=== PATIENT | female | born 1980 | race Caucasian/White ===

== ENCOUNTER 2017-03-04 20:45 | Observation (INO) ==
--- NOTE | 2017-03-04 21:10 | Emergency Department Note ---
Disposition Clinical Impression: Palpitations, Supraventricular tachycardia Anemia Qualifiers: Anemia type: iron deficiency Iron deficiency anemia type: unspecified iron deficiency Qualified Code(s): D50.9 - Iron deficiency anemia, unspecified Disposition: Admitted As Inpatient Condition: Good Referrals: Unassigned,Provider [Primary Care Provider] - Forms: ED Satisfaction Letter Time of Disposition: 22:11 General Adult HPI - General Chief complaint: ED Arrhythmia/Palpitations Stated complaint: "Fast Heart Rate" Time Seen by Provider: 03/04/17 20:56 Source: patient Mode of arrival: ambulatory Limitations: no limitations Nursing Notes Reviewed: Yes Vital Signs Reviewed: Yes - History of Present Illness HPI Narrative: Patient presents emergency room for evaluation of palpitations. She had an event monitor go off and she was called by the well reactivator operator recommendation from the emergency room for evaluation. Denies any other symptoms or complaints at that time. Only here at the request of the well reactivator operator. 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 Constitutional: Denies: fever, chills Cardiovascular: Reports: palpitations. Denies: chest pain, dyspnea on exertion , orthopnea, edema Respiratory: Denies: cough, dyspnea, wheezes Gastrointestinal: Denies: abdominal pain, nausea, vomiting, diarrhea Genitourinary: Denies: dysuria, frequency Musculoskeletal: Denies: back pain, neck pain Neurological: Denies: headache Past Medical History - Past Medical History Attestation: Yes The following information was validated with the patient. Source: patient Medical history: Reports: SVT Surgical history: Reports: non-contributory Psychiatric history: Reports: anxiety - Social History Smoking Status: Current every day smoker Smokeless Tobacco Status: No Alcohol use: Reports: rarely Drug use: Reports: none Physical Exam - General Limitations: no limitations General appearance: alert, in no apparent distress - Neck Neck exam: Present: normal inspection, full ROM, trachea midline - Respiratory Respiratory exam: Present: normal lung sounds bilaterally. Absent: respiratory distress, wheezes, stridor, accessory muscle use - Cardiovascular Cardiovascular exam: Present: regular rate, normal rhythm, tachycardia, normal heart sounds - Abdominal Exam Abdominal exam: Present: soft, Non-Tender, normal bowel sounds. Absent: tenderness, distention, guarding, rebound, rigidity, Mcgraw's sign, Rovsing's sign, tenderness at McBurney's Point, hernia - Extremities Exam Extremities exam: Present: normal inspection, full ROM. Absent: normal capillary refill (Diminished capillary refill) - Back Exam Back exam: Present: normal inspection - Neurological Exam Neurological exam: Present: alert, oriented X3, CN II-XII intact, normal gait - Skin Skin exam: Present: warm, dry, intact, normal color Course Course Narrative: Patient seen and examined the time of arrival. See history of present illness. 36-year-old female sent in from her well reactivator operator today for an event monitor activation. She is in several runs of SVT. Patient was at her child's track meet at that time decided to come in after the event was completed. Patient denies any current symptoms on presentation. Heart rate is borderline tachycardic at 100-103. She denies any chest pain shortness of breath headache vision changes nausea vomiting or diarrhea. Denies fevers or chills. No recent medical issues. Denies any abdominal symptoms trauma or injury. She is alert and oriented 3 Stoll in no acute distress. Physical exam is otherwise benign. Lungs are clear heart is regular patient is very thin and does appear to be slightly cachectic based on presentation. Abdomen is soft nontender nondistended no guarding or rigidity lungs are clear heart is regular. Patient denies any vaginal discharge bowel or bladder incontinence or changes. No dark- colored stool. Patient is ambulatory without any signs of ataxia or weakness. She cannulated through the emergency room without any difficulty. Patient at this time will have laboratory evaluation completed in including thyroid troponin basic CBC and chemistry to address any other underlying potential etiology. Patient is never had a laboratory workup for this SVT syndromes. EKG shows sinus rhythm with no acute pathology changes at this time. Patient will be admitted to the hospital for further evaluation once the imaging and laboratory workup are completed. Patient is stable resting comfortably in the bed no distress at this time - Reevaluation(s) Reevaluation #1: Patient found to have significantly decreased hemoglobin at 6.6. One back in to discuss this with the patient. Patient says that she has had chronic microcytic anemia that was diagnosed 12 years ago. She stopped taking iron because it made her stomach upset. Patient I reviewed in great detail that she has not had any dark stool no vomiting or hematemesis no hematochezia or melena. Patient said that she would like to defer the rectal examination and try to have a bowel movement on her own and that will be sent for occult testing. Patient denies any other specific medical history at this time. Patient is stable with normal blood pressure and vital signs at this time. Heart rate appears to be secondary to what is anemia this point. Type and screen ordered this time and 1 unit of blood to be transfused as needed for symptom control. Patient will be discussed with the hospitalist for admission and evaluation by hematology and cardiology. Patient is stable resting comfortably in the bed no distress patient and the family were both informed and they are comfortable this plan. We will continue to monitor here in the emergency room as admission process is completed Time: 22:09 Reevaluation #2: Patient discussed with the hospitalist dr. keenan. We reviewed the patient' s course of care presentation medical intervention and outpatient evaluation by the well reactivator operator. He had no other recommendations at this time. Patient set up for transfusion 1 unit of blood at this point. Patient will be admitted for definitive management. Consultations placed for the value analysis coordinator as well as well reactivator operator. Patient is stable and good medical condition. Discussed the findings with the patient and her are both comfortable being admitted at this time. Patient will be observed in the emergency room his admission process is completed for anemia that appears to be microcytic causing cardiac arrhythmia. Time: 22:43 Vital Signs Temperature 97.5 F L 03/04/17 20:51 Pulse Rate 101 03/04/17 20:51 Respiratory Rate 18 03/04/17 20:51 Blood Pressure 113/77 03/04/17 20:51 O2 Sat by Pulse Oximetry 100 03/04/17 20:51 Temperature 97.5 F L 03/04/17 20:51 Pulse Rate 101 03/04/17 20:51 Respiratory Rate 18 03/04/17 20:51 Blood Pressure 113/77 03/04/17 20:51 O2 Sat by Pulse Oximetry 100 03/04/17 20:51 Oxygen Delivery Oxygen Delivery Room Air Medical Decision Making - MDM Narrative Medical decision making narrative: Anemia, SVT - Medical Records Medical records reviewed: Yes I reviewed the patient's medical records. - Lab Data Lab results reviewed: Yes I reviewed the patient's lab results. - Radiology Data Radiology results reviewed: Yes I reviewed the patient's radiology results. Chest x-ray stable no acute signs of pathology. - EKG Data EKG #1 EKG attestation: Yes I reviewed and interpreted this EKG. EKG shows normal: sinus rhythm, axis, intervals, QRS complexes, ST-T waves Rate: normal Rhythm: NSR [place]/QRS: normal When compared to previous EKG there are: no significant changes Interpretation: no acute changes, unchanged when compared to prior tracing (date ) (12/14/16) Critical Care Time Critical Care Time: Yes Total Critical Care Time: 35 Attestation: Independent of procedures and medical intervention in the emergency room
[2017-03-04 21:20] LABS: Basophils % 0.2 %; Eosinophils # 0.2 K/mcL (0.0-0.6); Eosinophils % 1.8 %; Hematocrit 24.3 % (35.3-44.9); Immature Granulocytes % 0.4 % (0-4); Immature Platelets 3.4 % (1.1-6.1); Lymphocytes # 2.7 K/mcL (0.6-4.6); Lymphocytes % 32.6 %; Mean Corpuscular HGB Conc 27.2 g/dL (31.6-35.5); Mean Corpuscular Hemoglobin 17.3 pg (28.0-33.3); Mean Corpuscular Volume 63.6 fL (83.0-100.0); Mean Platelet Volume 9.2 fL (9.4-12.4); Monocytes # 0.5 K/mcL (0.0-1.3); Monocytes % 5.6 %; Neutrophils # 4.9 K/mcL (1.6-8.9); Platelet Count 485 K/mcL (140-400); Red Blood Count 3.82 M/mcL (3.82-4.97); Red Cell Distribution Width 20.6 % (11.5-14.5); Segmented Neutrophils % 59.4 %
[2017-03-04 21:29] LABS: BUN/Creatinine Ratio 22 (6-26); Blood Urea Nitrogen 19 mg/dL (7-20); Carbon Dioxide 23 mEq/L (19-29); Chloride 108 mEq/L (98-109); Glucose 92 mg/dL (70-99); Osmolality,Calculated 292 (280-300); Potassium 3.8 mEq/L (3.5-4.5); Sodium 140 mEq/L (136-145); eGFR For African Americans > 60 (> 60); eGFR For Non-African Americans > 60 (> 60)
[2017-03-04 21:31] LABS: Hemoglobin 6.6 g/dL (11.5-15.4)
[2017-03-04 21:33] LABS: Microcytosis Present (Not Present); Target Cells 1+ (Not Present); Tear Drop Cells 1+ (Not Present)
[2017-03-04 21:34] LABS: Anisocytosis 2+ (Not Present); Poikilocytosis 1+ (Not Present)
[2017-03-04 21:51] LABS: Thyroid Stimulating Hormone 2.683 mcIU/mL (0.350-4.840)
--- NOTE | 2017-03-04 22:10 | Emergency Department Note ---
Disposition Clinical Impression: Palpitations, Supraventricular tachycardia, Anemia Disposition: Admitted As Inpatient Condition: Good General Adult HPI - General Chief complaint: ED Arrhythmia/Palpitations Stated complaint: "Fast Heart Rate" Time Seen by Provider: 03/04/17 20:56 Source: patient Mode of arrival: ambulatory Limitations: no limitations Nursing Notes Reviewed: Yes Vital Signs Reviewed: Yes - History of Present Illness Location: chest Pain Scale: 6 Improves with: rest Worsens with: nothing Associated symptoms: Reports: denies other symptoms Treatments Prior to Arrival: none - Related Data Home Medications Medication Instructions Recorded Confirmed Ascorbate Calcium [Vitamin C] 500 mg PO DAILY 03/04/17 03/04/17 Ibuprofen [Advil] 200 mg PO Q6H PRN 03/04/17 03/04/17 Allergies Allergy/AdvReac Type Severity Reaction Status Date / Time No Known Allergies Allergy Verified 03/04/17 21:38 Constitutional: Denies: fever, chills Cardiovascular: Reports: palpitations. Denies: chest pain, dyspnea on exertion , orthopnea, edema Respiratory: Denies: cough, dyspnea, wheezes Gastrointestinal: Denies: abdominal pain, nausea, vomiting, diarrhea Genitourinary: Denies: dysuria, frequency Musculoskeletal: Denies: back pain, neck pain Neurological: Denies: headache Past Medical History - Past Medical History Medical history: Reports: SVT Surgical history: Reports: non-contributory Psychiatric history: Reports: anxiety - Social History Smoking Status: Current every day smoker Smokeless Tobacco Status: No Alcohol use: Reports: rarely Drug use: Reports: none Physical Exam - General Limitations: no limitations General appearance: alert, in no apparent distress Course Vital Signs Temperature 97.5 F L 03/04/17 20:51 Pulse Rate 101 03/04/17 20:51 Respiratory Rate 18 03/04/17 20:51 Blood Pressure 113/77 03/04/17 20:51 O2 Sat by Pulse Oximetry 100 03/04/17 20:51 Temperature 97.5 F L 03/04/17 20:51 Pulse Rate 101 03/04/17 20:51 Respiratory Rate 18 03/04/17 20:51 Blood Pressure 113/77 03/04/17 20:51 O2 Sat by Pulse Oximetry 100 03/04/17 20:51 Oxygen Delivery Oxygen Delivery Room Air Medical Decision Making - Medical Records Medical records reviewed: Yes I reviewed the patient's medical records. - Lab Data Lab results reviewed: Yes I reviewed the patient's lab results. Result diagrams: 03/04/17 21:09 03/04/17 21:09 Lab Results 03/04/17 03/04/17 03/04/17 Range/Units 21:09 21:09 21:09 WBC 8.2 (4.3-11.1) K/mcL RBC 3.82 (3.82-4.97) M/mcL Hgb 6.6 L (11.5-15.4) g/dL Hct 24.3 L (35.3-44.9) % MCV 63.6 L (83.0-100.0) fL MCH 17.3 L (28.0-33.3) pg MCHC 27.2 L (31.6-35.5) g/dL RDW 20.6 H (11.5-14.5) % Plt Count 485 H (140-400) K/mcL MPV 9.2 L (9.4-12.4) fL Immature Gran % 0.4 (0-4) % Seg Neutrophils % 59.4 % Lymphocytes % 32.6 % Monocytes % 5.6 % Eosinophils % 1.8 % Basophils % 0.2 % Neutrophils # 4.9 (1.6-8.9) K/mcL Lymphocytes # 2.7 (0.6-4.6) K/mcL Monocytes # 0.5 (0.0-1.3) K/mcL Eosinophils # 0.2 (0.0-0.6) K/mcL Basophils # 0.0 (0.0-0.2) K/mcL Platelet Estimate Slight increase H (Normal) Immature Plt Fraction 3.4 (1.1-6.1) % Poikilocytosis 1+ A (Not Present) Anisocytosis 2+ A (Not Present) Microcytosis Present A (Not Present) Target Cells 1+ A (Not Present) Tear Drop Cells 1+ A (Not Present) Sodium 140 (136-145) mEq/L Potassium 3.8 (3.5-4.5) mEq/L Chloride 108 (98-109) mEq/L Carbon Dioxide 23 (19-29) mEq/L BUN 19 (7-20) mg/dL Creatinine 0.87 (0.57-1.11) mg/dL Est GFR ( Amer) > 60 (> 60) Est GFR (Non-Af Amer) > 60 (> 60) BUN/Creatinine Ratio 22 (6-26) Glucose 92 (70-99) mg/dL Calculated Osmolality 292 (280-300) Calcium 9.0 (8.6-10.8) mg/dL Magnesium 2.0 (1.6-2.6) mg/dL Troponin I 0.01 (0-0.03) ng/mL TSH 2.683 (0.350-4.840) mcIU/mL Urine Opiates Screen (Tmwiqz=907) ng/mL Ur Barbiturates Screen (Jbnvvh=717) ng/mL Ur Phencyclidine Scrn (Cutoff=25) ng/mL Ur Amphetamines Screen (Ecjatm=2398) ng/mL U Benzodiazepines Scrn (Wzwyqb=125) ng/mL Urine Cocaine Screen (Cutoff= 300) ng/mL U Marijuana (THC) Screen (Cutoff = 50) ng/mL 03/04/17 Range/Units 22:15 WBC (4.3-11.1) K/mcL RBC (3.82-4.97) M/mcL Hgb (11.5-15.4) g/dL Hct (35.3-44.9) % MCV (83.0-100.0) fL MCH (28.0-33.3) pg MCHC (31.6-35.5) g/dL RDW (11.5-14.5) % Plt Count (140-400) K/mcL MPV (9.4-12.4) fL Immature Gran % (0-4) % Seg Neutrophils % % Lymphocytes % % Monocytes % % Eosinophils % % Basophils % % Neutrophils # (1.6-8.9) K/mcL Lymphocytes # (0.6-4.6) K/mcL Monocytes # (0.0-1.3) K/mcL Eosinophils # (0.0-0.6) K/mcL Basophils # (0.0-0.2) K/mcL Platelet Estimate (Normal) Immature Plt Fraction (1.1-6.1) % Poikilocytosis (Not Present) Anisocytosis (Not Present) Microcytosis (Not Present) Target Cells (Not Present) Tear Drop Cells (Not Present) Sodium (136-145) mEq/L Potassium (3.5-4.5) mEq/L Chloride (98-109) mEq/L Carbon Dioxide (19-29) mEq/L BUN (7-20) mg/dL Creatinine (0.57-1.11) mg/dL Est GFR ( Amer) (> 60) Est GFR (Non-Af Amer) (> 60) BUN/Creatinine Ratio (6-26) Glucose (70-99) mg/dL Calculated Osmolality (280-300) Calcium (8.6-10.8) mg/dL Magnesium (1.6-2.6) mg/dL Troponin I (0-0.03) ng/mL TSH (0.350-4.840) mcIU/mL Urine Opiates Screen Negative (Yhfegq=313) ng/mL Ur Barbiturates Screen Negative (Qmwqby=853) ng/mL Ur Phencyclidine Scrn Negative (Cutoff=25) ng/mL Ur Amphetamines Screen Negative (Caldqc=7919) ng/mL U Benzodiazepines Scrn Negative (Bdxuqc=098) ng/mL Urine Cocaine Screen Negative (Cutoff= 300) ng/mL U Marijuana (THC) Screen Negative (Cutoff = 50) ng/mL Attestation Statement - Attestation Attestation: I personally interviewed and examined this patient and my medical decision- making was reviewed with the ED Resident Physician, Dr. Bales. I agree with the documented findings, disposition and treatment plan as described except to the extent set forth below. Patient is a 36-year-old white female with a remote history of iron deficiency anemia who presents to the emergency department with reports of "SVT". Patient had an episode earlier this evening of rapid heart rate where she felt her heart rate went up into the 200s. Patient became lightheaded but did not have a syncopal episode, denies any associated chest pain or pressure, no shortness of breath, no diaphoresis, no nausea. Patient arrives with a mild tachycardia with heart rate 103 and regular. Remainder of vitals are stable. Patient is in no acute distress and had no signs of respiratory distress. Patient's physical exam unremarkable agree with physical exam documentation. Patient's CBC shows a microcytic anemia with hemoglobin of 6.6. Patient states that she had taken iron in the past 10-12 years ago but stopped taking it due to "it made me feel sick". Patient denies any bright red blood per rectum or tarry black stools. No history of prior GI bleeding. Patient currently refusing rectal exam and will notify nursing if she needs to have a bowel movement to send for stool guaiac. We will obtain a type and screen and transfuse patient 2 units packed red blood cells and admit for further hematology consult.
[2017-03-04 22:28] LABS: Amphetamine Screen,Urine Negative ng/mL (Cutoff=1000); Barbiturate Screen,Urine Negative ng/mL (Cutoff=200); Benzodiazepines Screen,Urine Negative ng/mL (Cutoff=200); Cannabinoid Screen,Urine Negative ng/mL (Cutoff = 50); Cocaine Screen,Urine Negative ng/mL (Cutoff= 300); Opiate Screen,Urine Negative ng/mL (Cutoff=300); Phencyclidine Screen,Urine Negative ng/mL (Cutoff=25)
[2017-03-04] MEDS ORDERED: Acetaminophen 325 MG TABLET PO PRN (23:17)
[2017-03-04] MEDS ORDERED: Naloxone 0.4 MG/ML INJ IVP PRN (23:17)
--- NOTE | 2017-03-05 00:18 | Internal Med History&Physical ---
Date of Encounter: 03/04/17 Time of Encounter: 23:30 Assessment and Plan (1) Supraventricular tachycardia Current visit: Yes Status: Acute -Diagnosed on Halter monitor. No longer symptomatic. HR NSR at 80. RRR, no murmurs. Denies CP, SOB. -Cardiology, Dr. Rincon recommended patient be admitted for further evaluation. -Normal sinus rhythm on exam. EKC normal. Normal ECHO on 02/14 showing EF 65%. Trop .01. CXR normal Plan -Await TSH results -Cardio consult. Will follow recommendations. Thank you. (2) Anemia Current visit: Yes Status: Acute -Previous history of iron deficiency anemia. Doesnt take iron due to hurting stomach -Abnormal CBC -No identifiable bleeding-denies hematochezia, dark tarry stools, melena, hematuria, coughing up blood. Plan -Trend H and H -Occult blood ordered -Hemeonc consulted Qualifiers: Anemia type: iron deficiency Iron deficiency anemia type: unspecified iron deficiency Qualified Code(s): D50.9 - Iron deficiency anemia, unspecified (3) DVT prophylaxis Current visit: Yes Status: Acute -because of anemia, pneumatic compression stockings. Internal Medicine - H&P: HPI Chief complaint: Palpatations Admitted From: Emergency Dept Plans for Post Hospital Care: Home History of present illness: Ms. Sauceda is a pleasant 36 year old female, PMH anemia "due to iron deficiency ", admitted per cardiology for SVT seen on Holter monitor. One month ago patient was having palpitations, admitted and workup was negative. Patient placed on Holter monitor for further evaluation. While at a track meet patient noticed heart racing, Holter monitor "went out", Dr. Pardo (sp?) was notified and called the patient to go to the ED to be admitted. Palpitations constant and lasted 3-4hours. Patient continue to watch track meet and then went to ED. While in the ED, patient converted back to sinus rhythm. Now, on the floor, only complaint is generalized fatigue, which she normally has, but is a little worse now. Otherwise, she is back to baseline. Concerning her anemia, patient states she was prescribed iron pills. However, quit taking them because it caused her upset stomach. She tried different doses , delivery methods, etc and none of them seem to relieve her upset stomach. Denies any hemoptysis, hematochezia, melena, dark tarry stools, hematuria. No previous history of cancer. Her only medication is vitamin C, which she takes because she feels it helps keep her from getting sick Continue to smoke 1-2 packs per day since age 11. No family history of cancer. 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 , son and daughter present throughout examination. Past Med Surg Social Fam HX - Past Medical History Medical history: SVT, other Psychiatric history: anxiety - Past Surgical History Surgical History: non-contributory - Social History Smoking Status: Current every day smoker Smokeless Tobacco Status: No Alcohol use: rarely Drug use: none - Family History Mother Name: Nakia Pickard Age: 57 Living Status: Still Living Hx Family Cardiac Disorders: No Hx Family Respiratory Disorders: No Hx Family Cancer: No Hx Family GI Disorders: No Hx Family Genitourinary Disorders: No Hx Family Endocrine Disorder: Yes (Hyperthyroidism) Hx Family Musculoskeletal Disorders: No Hx Family Neuromuscular Disorders: No Hx Family Neurologic Disorders: No Hx Family HEENT Disorders: No Hx Family Autoimmune Disorders: No Hx Family Reproductive Disorders: No Hx Family Psychosocial Disorders: No Hx Family Medical Disorders: No Internal Medicine - H&P: Meds Ascorbate Calcium [Vitamin C] 500 mg PO DAILY 03/04/17 [History] Ibuprofen [Advil] 200 mg PO Q6H PRN 03/04/17 [History] Allergies No Known Allergies Allergy (Verified 03/04/17 21:38) All Systems PM: A 10-system review of systems was performed and is negative for pertinent findings except as documented above in the HPI. - Constitutional Constitutional: as per HPI - EENT Eyes: as per HPI - Cardiovascular Cardiovascular ROS IM: as per HPI - Respiratory Respiratory: as per HPI - Gastrointestinal Gastrointestinal: as per HPI - Genitourinary Genitourinary: as per HPI - Neurological Neurological ROS: as per HPI - Constitutional Vitals: Temp Pulse Resp BP Pulse Ox 98.5 F 80 16 109/75 100 03/04/17 23:18 03/04/17 23:18 03/04/17 23:18 03/04/17 23:18 03/04/17 23:38 General appearance: Present: A&O X 3, no acute distress, answers questions appropriately - Head Head exam: Present: atraumatic, normocephalic - Eye Eye exam: Present: PERRL, conjuntiva pink, sclera anicteric Pupils: Present: PERRL - Neck Neck exam general surgery: Present: supple, trachea midline. Absent: lymphadenopathy - Respiratory Respiratory exam: Present: CTAB. Absent: accessory muscle use, rales, rhonchi, wheezes - Cardiovascular Cardiovascular exam: Present: RRR, +S1, +S2. Absent: diastolic murmur, gallop, rubs, systolic murmur - GI/Abdominal GI/Abdominal exam: Present: soft, no peritoneal signs. Absent: distended, tenderness - Extremities Exam Extremities exam: Present: warm, radial pulses palpable and symetrical. Absent : calf tenderness, cyanotic, pedal edema - Neurological Exam Neurological exam: Present: CN II-XII intact, oriented X3, no focal deficits. Absent: facial droop, speech deficit - Psychiatric Psychiatric exam: Present: normal affect, normal mood - Skin Skin exam: Present: normal color Internal Med - H&P Results - Labs CBC & Chem 7: 03/04/17 21:09 03/04/17 21:09
[2017-03-05 01:35] LABS: % Iron Saturation 2 % (15-50); Iron 9 mcg/dL (50-170); Transferrin 338 mg/dL (180-382)
[2017-03-05 01:54] LABS: Ferritin 2 ng/ml (5-204)
[2017-03-05] MEDS ORDERED: 0.9 % Sodium Chloride 250 ML ONE (02:20)
[2017-03-05 06:18] LABS: Hematocrit 26.4 % (35.3-44.9); Hemoglobin 7.4 g/dL (11.5-15.4)
[2017-03-05 06:35] LABS: BUN/Creatinine Ratio 18 (6-26); Blood Urea Nitrogen 14 mg/dL (7-20); Calcium 8.6 mg/dL (8.6-10.8); Carbon Dioxide 23 mEq/L (19-29); Chloride 108 mEq/L (98-109); Glucose 86 mg/dL (70-99); Osmolality,Calculated 286 (280-300); Phosphorous 4.3 mg/dL (2.3-4.7); Potassium 3.7 mEq/L (3.5-4.5); Sodium 138 mEq/L (136-145); eGFR For African Americans > 60 (> 60); eGFR For Non-African Americans > 60 (> 60)
[2017-03-05 07:48] LABS: Alanine Aminotransferase < 6 Units/L (0-55); Albumin 3.3 g/dL (3.5-5.0); Albumin/Globulin Ratio 1.2 (1.1-2.2); Alkaline Phosphatase 68 Units/L (38-126); Aspartate Amino Transferase 10 Units/L (5-34); Bilirubin,Direct 0.1 mg/dL (0.0-0.5); Bilirubin,Total 0.1 mg/dL (0.2-1.2); Globulin 2.8 g/dL (2.4-3.5); Lactate Dehydrogenase 161 Units/L (159-327); Total Protein 6.1 g/dL (6.0-8.3)
[2017-03-05 08:21] LABS: Immature Reticulocyte % 16.7 % (11.0-38.0); Retculocyte # 0.02 M/mcL (0.05-0.10); Reticulocyte % 0.4 % (1.6-2.8)
--- NOTE | 2017-03-05 09:18 | Internal Med Progress Note ---
Addendum entered and electronically signed by Baljeet Walker DO 03/05/17 11:20: No evidence of GI bleed, patient affirms no bloody bm Original Note: <Baljeet Walker - Last Filed: 03/05/17 11:09> Date of Encounter: 03/05/17 Time of Encounter: 08:20 - Assessment and plan (1) Anemia Current Visit: Yes Status: Acute Assessment and plan: Microcytic, hypochromic, to suggest chronicity. Iron panel suggests RHONDA, also congruent with her reported heavy menstrual periods. Patient reports that she was on PO iron tablets through her 20's, then with nausea and epigastric burning stopped taking them. Consideration for superimposed anemia of inflammation (chronic disease) Transfused 1 U PRBC, for Hgb 6.6 to 7.4 Cont to monitor. She is a 1-2ppd smoker since early teens, with prior CTA in December of 2010 for chest pain disclosing: There is adequate opacification of the pulmonary arteries for evaluation. No evidence of intraluminal filling defect to suggest pulmonary embolism. Main pulmonary artery is normal in caliber. No acute process in the lungs. No effusion or pneumothorax. The central airways are clear. Residual thymic tissue is noted in the anterior mediastinum. There is fullness of the AP window with AP window lymph nodes measuring up to 12 mm in short axis dimension. This is suggest lymphadenopathy. No definite right mediastinal or hilar lymphadenopathy. No axillary lymphadenopathy. No evidence of pericardial effusion. Heart size is within normal limits. Limited images of the upper abdomen demonstrate no acute abnormality. No acute abnormality of the visualized osseous structures. IMPRESSION: No evidence of pulmonary embolism or acute pulmonary abnormality. Nonspecific AP window lymphadenopathy. This may be reactive although neoplastic disease cannot be excluded. Recommend close interval follow-up with CT. PET CT could also be considered. Patient did not have follow-up. Review of CXR on this visit discloses hilar LAD prominence. Ordered for CHET in AM, possible sarcoidosis Qualifiers: Anemia type: iron deficiency Iron deficiency anemia type: unspecified iron deficiency Qualified Code(s): D50.9 - Iron deficiency anemia, unspecified (2) Supraventricular tachycardia Current Visit: Yes Status: Acute Assessment and plan: As reported in documentation, captured on Holter Her EKGs obtained in ED disclose NSR without ST or other ischemic changes. Does not appear to have pre-excitatory accessory bundle. Suspect 2* anemia per above. Trope x 2 negative. Appreciate cardiology recs. (3) Current smoker Current Visit: Yes Status: Acute Assessment and plan: Patient smokes 1-2ppd since early teens. We discussed smoking cessation, she declines NRT at this time. (4) DVT prophylaxis Current Visit: Yes Status: Acute Assessment and plan: EPCDs - Subjective Interval history: Patient seen/eval, interval events reviewed with night resident. Patient feels fatigued and is reluctant to go over her medical history in detail. With prompting, she does endorse events that prompted hospitalization, including Holter monitor at track meet with HR 200's, and advised by her Dough Catcher Dr. Pardo to seek medical attention. She endorses heavy menstrual periods and RHONDA diagnosed in her teens, and was on oral iron supplements but stopped taking them over 15 years ago due to nausea and epigastric burning sensation. PCP is Dr. Ott. Patient would start smoking in her early teens, 1-2ppd, occ etoh, denies substance abuse. She has noticed a dry nonproductive cough over the past few months, no hemoptysis. Occasional sweats at night, though unsure if it is due to poor ventilation. Denies fever or unintentional weight loss. No NVD. Denies bloody bowel movements or abdominal pain. - Constitutional Vitals: Temp Pulse Resp BP Pulse Ox 97.6 F 85 15 100/66 95 03/05/17 06:19 03/05/17 06:19 03/05/17 06:19 03/05/17 06:19 03/05/17 06:19 General appearance: Present: A&O X 3, no acute distress, answers questions appropriately - Head Head exam: Present: atraumatic, normocephalic - Eye Eye exam: Present: EOMI, sclera anicteric - ENT ENT exam: Present: mucous membranes moist, normal oropharynx (no lesions or bleed) - Neck Neck exam general surgery: Present: supple, trachea midline. Absent: lymphadenopathy - Respiratory Respiratory exam: Present: CTAB. Absent: rhonchi, wheezes - Cardiovascular Cardiovascular exam: Present: +S1, +S2. Absent: JVD - GI/Abdominal GI/Abdominal exam: Present: soft, no peritoneal signs. Absent: tenderness - Rectal Rectal exam: Present: deferred (patient declines) - Extremities Exam Extremities exam: Present: warm, radial pulses palpable and symetrical. Absent : pedal edema Additional comments: no rashes, joint pain. No erythema nodosum - Neurological Exam Neurological exam: Absent: facial droop, speech deficit Internal Medicine: Result - Labs CBC & Chem 7: 03/05/17 05:44 03/05/17 05:44 Labs: Short CBC 03/05/17 Range/Units 05:44 Hgb 7.4 L (11.5-15.4) g/dL Hct 26.4 L (35.3-44.9) % [facility] 03/05/17 05:44 Sodium 138 Potassium 3.7 Chloride 108 Carbon Dioxide 23 BUN 14 Creatinine 0.76 Glucose 86 Calcium 8.6 Cardiac Enzymes 03/05/17 Range/Units 08:12 Troponin I 0.01 (0-0.03) ng/mL Liver Function 03/05/17 Range/Units 05:44 Total Bilirubin 0.1 L (0.2-1.2) mg/dL Direct Bilirubin 0.1 (0.0-0.5) mg/dL AST 10 (5-34) Units/L ALT < 6 (0-55) Units/L Alkaline Phosphatase 68 (38-126) Units/L Albumin 3.3 L (3.5-5.0) g/dL Consult Discharge Plan - Plan Referrals: Nick Ott MD [Primary Care Provider] - <Bhupendra Arrieta P - Last Filed: 03/05/17 13:37> Date of Encounter: 03/05/17 - Constitutional Vitals: Temp Pulse Resp BP Pulse Ox 97.6 F 90 15 93/61 98 03/05/17 12:00 03/05/17 12:00 03/05/17 12:00 03/05/17 12:00 03/05/17 12:00 Internal Medicine: Result - Labs CBC & Chem 7: 03/05/17 05:44 03/05/17 05:44 Labs: Short CBC 03/05/17 Range/Units 05:44 Hgb 7.4 L (11.5-15.4) g/dL Hct 26.4 L (35.3-44.9) % [facility] 03/05/17 05:44 Sodium 138 Potassium 3.7 Chloride 108 Carbon Dioxide 23 BUN 14 Creatinine 0.76 Glucose 86 Calcium 8.6 Cardiac Enzymes 03/05/17 Range/Units 08:12 Troponin I 0.01 (0-0.03) ng/mL Liver Function 03/05/17 Range/Units 05:44 Total Bilirubin 0.1 L (0.2-1.2) mg/dL Direct Bilirubin 0.1 (0.0-0.5) mg/dL AST 10 (5-34) Units/L ALT < 6 (0-55) Units/L Alkaline Phosphatase 68 (38-126) Units/L Albumin 3.3 L (3.5-5.0) g/dL - Attending Attestation I examined this patient and my medical decision-making was reviewed with the RETIREMENT CONSULTANT/PA/Advanced Practice Nurse/Resident Physician. I agree with the documented findings, disposition and treatment plan as described except to the extent set forth below. Cardiology recommendations appreciated Hemoglobin is 7.4. We will transfuse 2 more packed red blood cell. We will recheck labs tomorrow. Outpatient follow-up with LUNCHROOM AIDE (menorrhagia)/pulmonary( hilar lymphadenopathy) This is a event note and not billable note.
--- NOTE | 2017-03-05 12:59 | Cardiology History & Physical ---
Date of Encounter: 03/05/17 Time of Encounter: 11:00 Assessment and Plan (1) Supraventricular tachycardia Current Visit: Yes Status: Acute Patient reports a history of palpitations over the past 10 years which have become more frequent in the past year. She was recently seen in the Cardiology office in December after being diagnosed in the ER with SVT. Again demonstrated on her event monitor yesterday is a regular narrow complex tachycardia, consistent with SVT. The precipitant is most likely profound anemia. She has received blood transfusion and is feeling better. She has not had recurrent palpitations or SVT while here. I recommend workup for her iron deficiency anemia and treatment. Dysrhythmia is secondary to this primary insult. Can consider low dose beta deny (Toprol XL 12.5mg or 25mg daily) during her hospitalization or at discharge if blood pressure allows. Otherwise, her echo demonstrates no concerning findings. No further cardiac workup is warranted at this time. We will sign off. Please call with questions. Recommend outpatient cardiology follow up for re-evaluation of dysrhythmia. History of Present Illness Chief complaint: Palpitations HPI: Ms. Sauceda is a 36 year old female known to me from the outpatient setting who I sent to the ER for SVT. I saw her for an initial consultation on January 19, 2017 for an ER follow up for which she was given a diagnosis of SVT. Unfortunately, there was no documentation of the rhythm disturbance and I recommended performing a 4 week event monitor and echo. Yesterday evening I was paged by the Cardio Monitor [employer] to inform me of a auto-triggered dysrhythmia. I called the patient and left a voicemail message. The company called again and said she had persistent SVT, HR 160-180's. I tried calling her without success. Eventually, I was able to get in touch with the patient. She was watching a track meet and did not hear her phone. She told me she wasn't feeling well and that she had palpitations. I instructed her to go to ER. Incidentally, she was discovered to have profound anemia, Hgb 6.6 and low iron count. She denies any bleeding events to me and reports that her menstrual cycles are "normal" for her. While in ER, appears to have sinus tachycardia. Presently, at bedside she is in NSR and denies recurrent palpitations since admission. She has received blood transfusion. Past Med Surg Social Fam HX - Past Medical History Attestation: Yes The following information was validated with the patient. Medical history: SVT, other Psychiatric history: anxiety - Past Surgical History Surgical History: non-contributory - Social History Smoking Status: Current every day smoker Smokeless Tobacco Status: No Alcohol use: rarely Drug use: none - Family History Mother Name: Nakia Pickard Age: 57 Living Status: Still Living Hx Family Cardiac Disorders: No Hx Family Respiratory Disorders: No Hx Family Cancer: No Hx Family GI Disorders: No Hx Family Genitourinary Disorders: No Hx Family Endocrine Disorder: Yes (Hyperthyroidism) Hx Family Musculoskeletal Disorders: No Hx Family Neuromuscular Disorders: No Hx Family Neurologic Disorders: No Hx Family HEENT Disorders: No Hx Family Autoimmune Disorders: No Hx Family Reproductive Disorders: No Hx Family Psychosocial Disorders: No Hx Family Medical Disorders: No Medications and Allergies Ascorbate Calcium [Vitamin C] 500 mg PO DAILY 03/04/17 [History] Ibuprofen [Advil] 200 mg PO Q6H PRN 03/04/17 [History] Allergies No Known Allergies Allergy (Verified 03/04/17 21:38) All Systems Review: A 10-system review of systems was performed and is negative for pertinent findings except as documented above in the HPI. - Cardiovascular Cardiovascular: as per HPI, palpitations Physical Examination Vital Signs, Last 4 Hours Temp Pulse Resp BP Pulse Ox 03/05/17 12:00 97.6 F 90 15 93/61 98 03/05/17 09:07 95 General: Conversant, No Apparent Distress HEENT: Atraumatic, Mucus Membranes Moist Neck: No JVD, Normal carotid pulses Cardiac: Reg Rate and Rhythm, Normal S1 and S2, No Murmur Lungs: Normal Breath Sounds, No Wheeze, Rales, Rhonchi Neuro: Alert and responsive, No focal deficits noted Abdomen: Soft, Non-Tender, Other (bowel sounds present) Extremities: No Edema, Normal Pulses Results 03/05/17 05:44 03/05/17 05:44 Lab Results 03/05/17 03/05/17 03/05/17 05:44 05:44 08:12 Hgb 7.4 L Hct 26.4 L Sodium 138 Potassium 3.7 Chloride 108 Carbon Dioxide 23 BUN 14 Creatinine 0.76 Glucose 86 Calcium 8.6 Total Bilirubin 0.1 L AST 10 ALT < 6 Alkaline Phosphatase 68 Troponin I 0.01 - Imaging and Cardiology Chest Xray: report reviewed Echo: report reviewed Other Results: Rhythm strips from Cardio Monitor were reviewed - EKG Interpretation EKG results cardiology: other (24h monitor demonstrates avg HR 85 bpm without dysrhythmia)
[2017-03-05] MEDS ORDERED: 0.9 % Sodium Chloride 500 ML ONE (15:12)
[2017-03-05] MEDS ORDERED: 0.9 % Sodium Chloride 1,000 ML ONE (20:24)
[2017-03-06 03:10] LABS: BUN/Creatinine Ratio 20 (6-26); Blood Urea Nitrogen 16 mg/dL (7-20); Carbon Dioxide 24 mEq/L (19-29); Chloride 109 mEq/L (98-109); Glucose 86 mg/dL (70-99); Osmolality,Calculated 290 (280-300); Potassium 3.9 mEq/L (3.5-4.5); Sodium 140 mEq/L (136-145); eGFR For African Americans > 60 (> 60); eGFR For Non-African Americans > 60 (> 60)
[2017-03-06 03:12] LABS: Albumin 3.6 g/dL (3.5-5.0); Albumin/Globulin Ratio 1.1 (1.1-2.2); Alkaline Phosphatase 79 Units/L (38-126); Aspartate Amino Transferase 9 Units/L (5-34); BUN/Creatinine Ratio 18 (6-26); Blood Urea Nitrogen 17 mg/dL (7-20); Calcium 9.2 mg/dL (8.6-10.8); Carbon Dioxide 25 mEq/L (19-29); Chloride 108 mEq/L (98-109); Globulin 3.4 g/dL (2.4-3.5); Glucose 83 mg/dL (70-99); Osmolality,Calculated 291 (280-300); Potassium 3.8 mEq/L (3.5-4.5); Sodium 140 mEq/L (136-145); eGFR For African Americans > 60 (> 60); eGFR For Non-African Americans > 60 (> 60)
[2017-03-06 03:16] LABS: Alanine Aminotransferase < 6 Units/L (0-55); Bilirubin,Total 0.8 mg/dL (0.2-1.2)
[2017-03-06 04:52] LABS: Basophils # 0.1 K/mcL (0.0-0.2); Basophils % 1.1 %; Eosinophils # 0.3 K/mcL (0.0-0.6); Hematocrit 36.1 % (35.3-44.9); Hemoglobin 10.6 g/dL (11.5-15.4); Immature Granulocytes % 0.2 % (0-4); Lymphocytes # 2.4 K/mcL (0.6-4.6); Lymphocytes % 37.8 %; Mean Corpuscular HGB Conc 29.4 g/dL (31.6-35.5); Mean Corpuscular Hemoglobin 20.5 pg (28.0-33.3); Mean Corpuscular Volume 69.7 fL (83.0-100.0); Mean Platelet Volume 9.3 fL (9.4-12.4); Monocytes # 0.5 K/mcL (0.0-1.3); Monocytes % 7.8 %; Neutrophils # 3.1 K/mcL (1.6-8.9); Platelet Count 386 K/mcL (140-400); Red Blood Count 5.18 M/mcL (3.82-4.97); Segmented Neutrophils % 49.1 %
[2017-03-06 05:22] LABS: Platelet Estimate Normal (Normal)
[2017-03-06 05:23] LABS: Anisocytosis 3+ (Not Present); Hypochromasia Present (Not Present); Microcytosis Present (Not Present)
[2017-03-06 06:24] VITALS: BP 108/77
--- NOTE | 2017-03-06 11:22 | Discharge Summary ---
<Baljeet Walker - Last Filed: 03/06/17 11:14> Date of Encounter: 03/06/17 Time of Encounter: 11:14 - Discharge Diagnosis (1) Anemia Priority: Primary Status: Acute Qualifiers: Anemia type: iron deficiency Iron deficiency anemia type: chronic blood loss Qualified Code(s): D50.0 - Iron deficiency anemia secondary to blood loss (chronic) (2) Supraventricular tachycardia Priority: Secondary Status: Acute (3) Current smoker Priority: Primary Status: Acute (4) DVT prophylaxis Priority: Secondary Status: Acute - Discharge Medications Prescriptions: Ascorbate Calcium [Vitamin C] 500 mg PO DAILY #30 tablet Iron Polysaccharide Complex [Ferrex 150] 150 mg PO BID #60 capsule Nicotine Patch [Nicoderm] 14 mg TD DAILY #20 patch.td24 Ondansetron HCl [Zofran] 4 mg PO Q6H PRN #12 tablet PRN Reason: Nausea Home Medications: Ascorbate Calcium [Vitamin C] 500 mg PO DAILY #30 tablet 03/06/17 [Rx] Iron Polysaccharide Complex [Ferrex 150] 150 mg PO BID #60 capsule 03/06/17 [Rx] Nicotine Patch [Nicoderm] 14 mg TD DAILY #20 patch.td24 03/06/17 [Rx] Ondansetron HCl [Zofran] 4 mg PO Q6H PRN #12 tablet 03/06/17 [Rx] Allergies/Adverse Reactions: Allergies No Known Allergies Allergy (Verified 03/04/17 21:38) Date of admission: 03/04/17 22:32 Primary care physician: Nick Ott Discharging clinician: Bhupendra Arrieta Anticipated date of discharge: 03/06/17 - Patient Status Disposition: Home, Self-Care Condition: Good Functional capacity at discharge: independent ambulation Overall status at discharge: patient is progressing back to baseline - Discharge Instructions Instructions: Anemia (GEN) Follow Up With: Nick Ott MD [Primary Care Provider] - (in 1 week, re-eval iron deficiency anemia, CBC check) Karina Mcfadden MD [Non-Partnered Physician] - (OBGYN- heavy menstrual bleeding in 2 weeks) Yaima Sosa MD [Partnered Physician] - (2-3 weeks, abnormal CTA, CXR with hilar lymphadenopathy, heavy smoker.) - Diet and Activity Activity: increase activity as tolerated Diet: advance to your usual diet Hospital course: Ms. Sauceda is a 36 year old female. Patient would present to [facility] with chief concern: Palpitations, with reported SVT on Holter monitor, was advised by her welding lead burner Dr. Pardo to be evaluated at [facility]. Comorbidities include: anxiety, prior diagnosed iron deficiency anemia from heavy menstruation, current 1-2ppd smoker. Hospital course: Initial Hgb noted 6.6. Transfused 1 U PRBC to good effect, telemetry monitoring to normal sinus rhythm. Cardiology consult regarding SVT, recommend workup for her iron deficiency anemia and treatment. Dysrhythmia is secondary to this primary insult. Recommend outpatient cardiology follow up for re-evaluation of dysrhythmia. Patient would undergo treatment with 2 more units PRBC transfusion and tolerated well. Iron studies demonstrated hypochromic, microcytic anemia, with Iron panel disclosing Iron 9, 2% saturation, Ferritin 2 to suggest RHONDA. No evidence of GI bleed. No evidence of intravascular hemolysis by labs. Patient did affirm to me that she has heavy menstrual periods and RHONDA diagnosed in her teens, and was on oral iron supplements but stopped taking them over 15 years ago due to nausea and epigastric burning sensation. Imaging studies disclosed: Chest X-Ray 03/04/17 20:57 IMPRESSION: No acute cardiopulmonary disease. She did have prior CTA in December of 2010 for chest pain disclosing: There is adequate opacification of the pulmonary arteries for evaluation. No evidence of intraluminal filling defect to suggest pulmonary embolism. Main pulmonary artery is normal in caliber. No acute process in the lungs. No effusion or pneumothorax. The central airways are clear. Residual thymic tissue is noted in the anterior mediastinum. There is fullness of the AP window with AP window lymph nodes measuring up to 12 mm in short axis dimension. This is suggest lymphadenopathy. No definite right mediastinal or hilar lymphadenopathy. No axillary lymphadenopathy. No evidence of pericardial effusion. Heart size is within normal limits. Limited images of the upper abdomen demonstrate no acute abnormality. No acute abnormality of the visualized osseous structures. IMPRESSION: No evidence of pulmonary embolism or acute pulmonary abnormality. Nonspecific AP window lymphadenopathy. This may be reactive although neoplastic disease cannot be excluded. Recommend close interval follow-up with CT. PET CT could also be considered. I discussed the following with the patient and recommended follow-up with a hand hide stretcher and counseled her on smoking cessation. She is agreeable to starting low-dose NRT, though cautiously as it may precipitate SVT. Patient has PCP Dr. Nick Ott. She follows OB-SEWING MACHINE OPERATOR ZIPPER Dr. Karina Nicole. I discussed her case with the OB-SEWING MACHINE OPERATOR ZIPPER wafer production worker Dr. Edgardo Rice. As the patient is hemodynamically stable, she is appropriate for outpatient follow-up with her OB-SEWING MACHINE OPERATOR ZIPPER Dr. Karina Nicole, consideration of endometrial ablation. Since the patient is unable to tolerate ferrous sulfate tablets due to intractable nausea, vomiting, and epigastric pain, recommend starting enteric- coated iron - Iron Polysaccharide Complex At time of discharge, patient was clinically improved, hemodynamically stable, progressing to baseline, and agreeable with plan of care. Patient was advised to seek immediate medical attention for any new or worsening symptoms including but not limited to fever, chills, chest pain, chest pressure, dyspnea, cough, abdominal pain, nausea, vomiting, diarrhea, bloody stool, urine, menstrual bleed and the patient voiced understanding. Patient will follow-up with primary care physician: Dr. Ott in [address] Chest abnormality - 2-[address] Karina Mcfadden for heavy menstrual bleeds 1-2 weeks. Time spent discussing smoking cessation with patient: more than 10 minutes - Time Spent with Patient Total time spent providing and/or coordinating discharge services: Greater than 30 minutes - Constitutional Vitals: Temp Pulse Resp BP Pulse Ox 98.7 F 75 15 108/77 97 03/06/17 06:00 03/06/17 06:00 03/06/17 06:00 03/06/17 06:00 03/06/17 09:52 General appearance: Present: A&O X 3, no acute distress, answers questions appropriately - Head Head exam: Present: atraumatic, normocephalic - Eye Eye exam: Present: EOMI, sclera anicteric - ENT ENT exam: Present: mucous membranes moist - Neck Neck exam general surgery: Present: supple, trachea midline - Respiratory Respiratory exam: Present: CTAB. Absent: rhonchi, wheezes - Cardiovascular Cardiovascular exam: Present: JVD, +S1, +S2 - GI/Abdominal GI/Abdominal exam: Present: soft, no peritoneal signs. Absent: tenderness - Extremities Exam Extremities exam: Present: warm, radial pulses palpable and symetrical. Absent : pedal edema - Neurological Exam Neurological exam: Present: strengths equal and symetr throughout. Absent: facial droop, speech deficit - VTE Documentation of Mechanical Device: Intermittent pneumatic compression device <Bhupendra Arrieta - Last Filed: 03/06/17 17:37> Date of Encounter: 03/06/17 Date of admission: 03/04/17 22:32 Primary care physician: [facility] course: Ms. Sauceda is a 36 year old female - Time Spent with Patient Total time spent providing and/or coordinating discharge services: - Constitutional Vitals: Temp Pulse Resp BP Pulse Ox 98.7 F 75 15 108/77 97 03/06/17 06:00 03/06/17 06:00 03/06/17 06:00 03/06/17 06:00 03/06/17 09:52 - Attending Attestation I examined this patient and my medical decision-making was reviewed with the LAB SPECIALIST/PA/Advanced Practice Nurse/Resident Physician. I agree with the documented findings, disposition and treatment plan as described except to the extent set forth below. follow up with [employer] Proc[employer]ment as outpatient
--- NOTE | 2017-03-07 17:03 | Electrocardiograph Report ---
[place] [id number] Test Date: 2017-03-04 Pat Name: Jessica Sauceda Department: 105 Room: [facility] Gender: F Wafer Fab Operator: MELVI : 1980 Requested By: Mookie Bales Order Number: [id number] Reading MD: Karina Machado Measurements Intervals [place] Rate: 89 P: 54 HI: 122 QRS: 72 QRSD: 86 T: 60 QT: 335 QTc: 382 Interpretive Statements SINUS RHYTHM Electronically Signed On 03-07-2017 17:02:11 EDT by Karina Machado
== END 2017-03-06 14:15 | disposition home or self-care (01) ==
LOC: EMEROO 20:45 → 2NENU 20:45
PROVIDERS: ADMIT Internal Medicine; ATTEND Internal Medicine

== ENCOUNTER 2018-07-06 17:18 | Inpatient (IN) ==
[2018-07-06] MEDS: 0.9 % Sodium Chloride 1,000 ML IVC ONE ×2 (17:36→18:06)
[2018-07-06 17:52] LABS: Basophils % 0.1 %; Eosinophils # 0.1 K/mcL (0.0-0.6); Eosinophils % 0.6 %; Hematocrit 52.4 % (35.3-44.9); Hemoglobin 17.6 g/dL (11.5-15.4); Immature Granulocytes % 0.4 % (0-4); Lymphocytes # 2.6 K/mcL (0.6-4.6); Lymphocytes % 15.2 %; Mean Corpuscular HGB Conc 33.6 g/dL (31.6-35.5); Mean Corpuscular Hemoglobin 30.7 pg (28.0-33.3); Mean Corpuscular Volume 91.3 fL (83.0-100.0); Mean Platelet Volume 10.1 fL (9.4-12.4); Monocytes # 0.3 K/mcL (0.0-1.3); Neutrophils # 14.1 K/mcL (1.6-8.9); Platelet Count 354 K/mcL (140-400); Red Blood Count 5.74 M/mcL (3.82-4.97); Red Cell Distribution Width 12.4 % (11.5-14.5); Segmented Neutrophils % 81.7 %
[2018-07-06] MEDS ORDERED: *HR* Ticagrelor 90 MG TABLET ONE (17:56)
[2018-07-06] MEDS ORDERED: *HR* Heparin 5,000 UNIT/ML VIAL ONE (17:57)
[2018-07-06] MEDS ORDERED: 0.9 % Sodium Chloride 1,000 ML ONE ×3 (17:57→18:45)
[2018-07-06] MEDS ORDERED: *HR* Ticagrelor 90 MG TABLET PO ONE (18:02)
[2018-07-06] MEDS ORDERED: *HR* Heparin 5,000 UNIT/ML VIAL IVP PRN ×2 (18:02)
[2018-07-06] MEDS ORDERED: Ondansetron 4 MG/2 ML VIAL IVP ONE (18:02)
[2018-07-06] MEDS ORDERED: *HR* Heparin 5,000 UNIT/ML VIAL IVP ONE (18:02)
[2018-07-06] MEDS ORDERED: Aspirin 81 MG TAB.CHEW PO ONE (18:02)
--- NOTE | 2018-07-06 18:02 | Emergency Department Note ---
Disposition Clinical Impression: STEMI (ST elevation myocardial infarction) Qualifiers: Involved coronary artery: unspecified coronary artery Qualified Code(s): I21.3 - ST elevation (STEMI) myocardial infarction of unspecified site Disposition: Admitted As Inpatient Condition: Serious Referrals: NONE,PCP [Primary Care Provider] - Time of Disposition: 18:05 General Adult HPI - General Chief complaint: ED Weakness Stated complaint: weak/passed out Time Seen by Provider: 07/06/18 17:28 Source: patient, EMS Mode of arrival: EMS Limitations: no limitations Nursing Notes Reviewed: Yes Vital Signs Reviewed: Yes - History of Present Illness HPI Narrative: Patient is a 37-year-old female that presents emergency department after a possible syncopal episode. Patient states that she was getting ready to go to a volleyball game and became weak and dizzy and collapsed. Patient denies any injuries. Patient states that she feels cold and has been shaking since then. Patient called EMS and transported here. Patient denies any chest pain or shortness of breath on initial presentation. Pain Scale: 4 - Related Data Home Medications Medication Instructions Recorded Confirmed Ascorbic Acid [Vitamin C] 500 mg PO BID 07/06/18 07/06/18 Cyanocobalamin (Vitamin B-12) 1,000 mg PO DAILY 07/06/18 07/06/18 [B-12] Iron Ps Complex/B12/Folic Acid 150 mg PO BID 07/06/18 07/06/18 [Poly-Iron 150 Forte Capsule] Pyridoxine HCl [Vitamin B-6] 25 mg PO DAILY 07/06/18 07/06/18 Allergies Allergy/AdvReac Type Severity Reaction Status Date / Time No Known Allergies Allergy Verified 03/04/17 21:38 All systems ED: reviewed and negative except as stated. Constitutional: Reports: chills Cardiovascular: Denies: chest pain Respiratory: Denies: dyspnea Neurological: Reports: weakness Past Medical History - Past Medical History Medical history: Reports: no medical history Surgical history: Reports: non-contributory Psychiatric history: Reports: anxiety - Social History Smoking Status: Current every day smoker Smokeless Tobacco Status: No Alcohol use: Reports: occasionally Drug use: Reports: none Physical Exam - General Limitations: no limitations General appearance: alert, in no apparent distress - Head Head exam: atraumatic, normocephalic - Eye Eye exam: Present: normal appearance, EOMI - Neck Neck exam: Present: normal inspection, full ROM, trachea midline - Respiratory Respiratory exam: Present: normal lung sounds bilaterally. Absent: respiratory distress, wheezes - Cardiovascular Cardiovascular exam: Present: normal rhythm, tachycardia, normal heart sounds, + S1, +S2 - Abdominal Exam Abdominal exam: Present: soft, Non-Tender, normal bowel sounds - Neurological Exam Neurological exam: Present: alert, oriented X3 - Psychiatric Psychiatric exam: Present: normal affect, normal mood - Skin Skin exam: Present: warm, dry, intact Course Vital Signs Temperature 96.1 F L 07/06/18 17:22 Pulse Rate 118 07/06/18 17:22 Respiratory Rate 16 07/06/18 17:22 Blood Pressure 192/122 07/06/18 17:22 O2 Sat by Pulse Oximetry 100 07/06/18 17:22 Temperature 96.1 F L 07/06/18 17:22 Pulse Rate 118 07/06/18 17:22 Respiratory Rate 16 07/06/18 17:22 Blood Pressure 192/122 07/06/18 17:22 O2 Sat by Pulse Oximetry 100 07/06/18 17:22 Oxygen Delivery Oxygen Delivery Room Air Medical Decision Making - MDM Narrative Medical decision making narrative: The patient presenting to the emergency department with reports of low temperature per EMS and history of anemia we will obtain basic laboratory tests including CBC, BMP, EKG patient's initial EKG showed a sinus tachycardia. Partially 20 minutes later the patient had chest pressure and a repeat EKG was obtained which showed significant ST elevations in the inferior lateral leads with reciprocal changes in the anterior leads. A STEMI alert was immediately called and cardiology was notified. Aspirin, Berlant and heparin were given. A troponin was sent for laboratory testing. Patient will need to go to the [facility] for further evaluation and management of her STEMI conditions. The attending Dr. Barriga spoke with the senior business manager Dr. Lerner and he was made aware of this case. Patient states that she is having chest pressure and some shortness of breath and her pain does not radiate anywhere. Patient denied taking any illicit drug use including cocaine. Patient does state the only thing she took today was a Naprosyn. Patient will need to go to the [facility] for definitive management and admission to the hospital for further evaluation and management. - Lab Data Lab results reviewed: Yes I reviewed the patient's lab results. Result diagrams: 07/06/18 17:26 Lab Results 07/06/18 Range/Units 17:26 WBC 17.3 H (4.3-11.1) K/mcL RBC 5.74 H (3.82-4.97) M/mcL Hgb 17.6 H (11.5-15.4) g/dL Hct 52.4 H (35.3-44.9) % MCV 91.3 (83.0-100.0) fL MCH 30.7 (28.0-33.3) pg MCHC 33.6 (31.6-35.5) g/dL RDW 12.4 (11.5-14.5) % Plt Count 354 (140-400) K/mcL MPV 10.1 (9.4-12.4) fL Immature Gran % 0.4 (0-4) % Seg Neutrophils % 81.7 % Lymphocytes % 15.2 % Monocytes % 2.0 % Eosinophils % 0.6 % Basophils % 0.1 % Neutrophils # 14.1 H (1.6-8.9) K/mcL Lymphocytes # 2.6 (0.6-4.6) K/mcL Monocytes # 0.3 (0.0-1.3) K/mcL Eosinophils # 0.1 (0.0-0.6) K/mcL Basophils # 0.0 (0.0-0.2) K/mcL - Radiology Data Radiology results reviewed: Yes I reviewed the patient's radiology results.
[2018-07-06] MEDS: Aspirin 81 MG TAB.CHEW ONE (18:03)
--- NOTE | 2018-07-06 18:04 | Emergency Department Note ---
Disposition Clinical Impression: Supraventricular tachycardia, Syncope and collapse STEMI (ST elevation myocardial infarction) Qualifiers: Involved coronary artery: unspecified coronary artery Qualified Code(s): I21.3 - ST elevation (STEMI) myocardial infarction of unspecified site Disposition: Admitted As Inpatient Condition: Serious Referrals: NONE,PCP [Primary Care Provider] - Forms: ED Satisfaction Letter General Adult HPI - General Chief complaint: ED Weakness Stated complaint: weak/passed out Time Seen by Provider: 07/06/18 17:28 Source: patient, EMS Limitations: no limitations Nursing Notes Reviewed: Yes Vital Signs Reviewed: Yes - History of Present Illness Pain Scale: 4 - Related Data Home Medications Medication Instructions Recorded Confirmed Ascorbic Acid [Vitamin C] 500 mg PO BID 07/06/18 07/06/18 Cyanocobalamin (Vitamin B-12) 1,000 mg PO DAILY 07/06/18 07/06/18 [B-12] Iron Ps Complex/B12/Folic Acid 150 mg PO BID 07/06/18 07/06/18 [Poly-Iron 150 Forte Capsule] Pyridoxine HCl [Vitamin B-6] 25 mg PO DAILY 07/06/18 07/06/18 Allergies Allergy/AdvReac Type Severity Reaction Status Date / Time No Known Allergies Allergy Verified 03/04/17 21:38 Past Medical History - Past Medical History Medical history: Reports: no medical history Surgical history: Reports: non-contributory Psychiatric history: Reports: anxiety - Social History Smoking Status: Current every day smoker Smokeless Tobacco Status: No Alcohol use: Reports: occasionally Drug use: Reports: none Physical Exam - General Limitations: no limitations General appearance: alert, in no apparent distress Course Vital Signs Temperature 96.1 F L 07/06/18 17:22 Pulse Rate 118 07/06/18 17:22 Respiratory Rate 16 07/06/18 17:22 Blood Pressure 192/122 07/06/18 17:22 O2 Sat by Pulse Oximetry 100 07/06/18 17:22 Temperature 97.5 F L 07/06/18 18:15 Pulse Rate 110 07/06/18 18:28 Respiratory Rate 21 07/06/18 18:28 Blood Pressure 123/80 07/06/18 18:28 O2 Sat by Pulse Oximetry 100 07/06/18 18:28 Oxygen Delivery Oxygen Delivery Room Air Medical Decision Making - [facility] Narrative Medical decision making narrative: 1726 hrs.: EKG shows a sinus rhythm rate is 117, QRS is 89, QTC is 476. She has an uneven baseline but it does appear that she could have got Q waves in the inferior leads. No ST segment elevation or ectopy. No EKG to compare this to. 1753 hrs.: Patient started having chest pressure. EKG shows a sinus rhythm rate is 90 QRS is [address] segment elevation in the inferior leads. Consistent with acute myocardial infarction. She also has reciprocal changes. She was called as a STEMI alert. - Lab Data Result diagrams: 07/06/18 17:26 07/06/18 17:26 Lab Results 07/06/18 07/06/18 07/06/18 Range/Units 17:26 17:26 17:26 WBC 17.3 H (4.3-11.1) K/mcL RBC 5.74 H (3.82-4.97) M/mcL Hgb 17.6 H (11.5-15.4) g/dL Hct 52.4 H (35.3-44.9) % MCV 91.3 (83.0-100.0) fL MCH 30.7 (28.0-33.3) pg MCHC 33.6 (31.6-35.5) g/dL RDW 12.4 (11.5-14.5) % Plt Count 354 (140-400) K/mcL MPV 10.1 (9.4-12.4) fL Immature Gran % 0.4 (0-4) % Seg Neutrophils % 81.7 % Lymphocytes % 15.2 % Monocytes % 2.0 % Eosinophils % 0.6 % Basophils % 0.1 % Neutrophils # 14.1 H (1.6-8.9) K/mcL Lymphocytes # 2.6 (0.6-4.6) K/mcL Monocytes # 0.3 (0.0-1.3) K/mcL Eosinophils # 0.1 (0.0-0.6) K/mcL Basophils # 0.0 (0.0-0.2) K/mcL Sodium 140 (136-145) mEq/L Potassium 3.7 (3.5-5.1) mEq/L Chloride 107 (98-107) mEq/L Carbon Dioxide 24 (23-29) mEq/L BUN 15 (6-20) mg/dL Creatinine 1.03 (0.60-1.20) mg/dL Est GFR ( Amer) > 60 (> 60) Est GFR (Non-Af Amer) 60 (> 60) BUN/Creatinine Ratio 15 (6-26) Glucose 131 H (70-105) mg/dL Calculated Osmolality 293 (280-300) Calcium 9.7 (8.6-10.3) mg/dL Troponin I < 0.03 (< 0.04) ng/mL Serum , Qual Negative (Negative) Critical Care Time Critical Care Time: Yes Total Critical Care Time: 30 Attestation: Excluding any separately billable procedures. Attestation Statement - Attestation Attestation: This documentation is done with the assistance of Dragon dictation. Despite efforts made to ensure accuracy, there may be inaccuracies in customer strategy manager or spelling and typographical errors. I examined this patient and my medical decision-making was reviewed with the Resident Physician. I agree with the documented findings, disposition and treatment plan as described except to the extent set forth below. Patient seen and evaluated on arrival with EMS and Dr. Logan, agree with his evaluation management plan, supervise care the patient's stay. Patient had a syncopal episode at home today she was carried to go to a soccer game. She said she just did not feel well but denied any pain. Daughter was accompanied her and said she did pass out medics were called she was a little tachycardic at this time but denies any pain they did an EKG and showed her to be tachycardic she has had no other medical problems except for anemia. She is to hands with difficult to tell if she is anemic on clinical signs. She had an initial EKG performed which shows a tachycardia and then on the second EKG done 20 minutes later she is An Inferior STEMI. Had No Chest Pain Initially. We Called Her Systemic Alert. I Spoke with Dr. Ramos Lerner Who Is on for Cardiology and They Will Activate the Deputy Prosecuting Attorney Team. We will order Heparin and Berlanta. IVs Placed.
[2018-07-06] MEDS ORDERED: Ondansetron 4 MG/2 ML VIAL ONE (18:05)
[2018-07-06 18:12] LABS: BUN/Creatinine Ratio 15 (6-26); Blood Urea Nitrogen 15 mg/dL (6-20); Calcium 9.7 mg/dL (8.6-10.3); Carbon Dioxide 24 mEq/L (23-29); Chloride 107 mEq/L (98-107); Glucose 131 mg/dL (70-105); Osmolality,Calculated 293 (280-300); Potassium 3.7 mEq/L (3.5-5.1); Sodium 140 mEq/L (136-145); eGFR For Non-African Americans 60 (> 60)
[2018-07-06] MEDS ORDERED: Heparin 25,000 UNIT/500 ML D5W 25,000 UNIT/500 ML BAG IVC SCH (18:15)
[2018-07-06] MEDS ORDERED: *HR* Heparin 10,000 UNIT/10 ML VIAL ONE (18:22)
[2018-07-06] MEDS ORDERED: Heparin 1,000 UNITS/500 mL 500 ML ONE (18:22)
[2018-07-06] MEDS ORDERED: ISOVUE-370 200 ML INFUS..BTL IV ONE (18:22)
[2018-07-06 18:23] LABS: Troponin I < 0.03 ng/mL (< 0.04)
[2018-07-06] MEDS ORDERED: Nitroglycerin 1,000 MCG/10 ML VIAL IV ONE (18:23)
[2018-07-06] MEDS ORDERED: Nitroglycerin 1 INCH/GM PACKET TP ONE (18:31)
[2018-07-06] MEDS ORDERED: *HR* Midazolam HCl 2 MG/2 ML VIAL ONE (18:33)
[2018-07-06] MEDS ORDERED: *HR* Atropine Sulfate 1 MG/10 ML SYRINGE ONE ×2 (18:54→22:21)
--- NOTE | 2018-07-06 19:22 | Cardiology History & Physical ---
Date of Encounter: 07/06/18 Time of Encounter: 18:30 Assessment and Plan (1) STEMI (ST elevation myocardial infarction) Current Visit: Yes Status: Acute The assessment and plan as outlined above was discussed with the patient and/or family members who expressed understanding and agreement. All questions were answered. Ongoing chest pain with acute inferior IL STEMI, minimal improvement with medical therapy, recommend emergent left heart cath possible, risks and benefits discussed, agrees to proceed. Qualifiers: Involved coronary artery: right coronary artery Qualified Code(s): I21.11 - ST elevation (STEMI) myocardial infarction involving right coronary artery (2) Current smoker Current Visit: No Status: Acute The assessment and plan as outlined above was discussed with the patient and/or family members who expressed understanding and agreement. All questions were answered. PT smokes greater than two packs a day, will add nicotine patch (3) Supraventricular tachycardia Current Visit: Yes Status: Acute The assessment and plan as outlined above was discussed with the patient and/or family members who expressed understanding and agreement. All questions were answered. Suspect tachycardia due to metabolic demands with acute IL, anxiety, will continue to monitor. (4) Syncope and collapse Current Visit: Yes Status: Acute The assessment and plan as outlined above was discussed with the patient and/or family members who expressed understanding and agreement. All questions were answered. n Unclear etiology, suspect may have had arrythmic event, will continue to monitor post revascularization. History of Present Illness Chief complaint: chest pain, syncope HPI: PT seen and examined, chart reviewed, discussed with ER staff prior to procedure , evaluation documented post procedure to facilitate emergent diagnositc and interventional angiography, . Ms. Sauceda is a 37 year old female who presened to the ER who was in her usual state of health today, was getting dresses to go to a soccer game, felt dizzy and passed out. She thinks was only seconds, did not lose bowel or bladder control, awoke on floor. She did not injure herself, She denies prodrome of more than a few seconds. She has no prior history of syncope. She denies chest pain, pressure or palpitations prior to the event. SHe notes developed shaky chill several minutes after she awoke, have waxed and waned this afternoon. She initially presented for evaluation without chest pain, pressure or palpitations, but was found to have rapid heart beat on initial eval. Approx twenty minutes after arrival, developed severe 9/10 mid sternal crushing chest pain, Repeat EKG at that time showed acutely changed tracing now with elevation of ST segments in the inferior leads with reciprocal lateral changes consistent with acute inferior STEMI. She continues to experience 7/10 chest pain, nausea and shaking chills. Past Med Surg Social Fam HX - Past Medical History Source: patient Medical history: no medical history, other (Vitamin D deficiency. 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 ) Recent Out of Country Travel Within the Last 8 Weeks: No Exposure or Possible Exposure to Illness During Travel: No - Family History Mother Living Status: Still Living Hx Family Cardiac Disorders: No Hx Family Respiratory Disorders: No Hx Family Cancer: No Hx Family GI Disorders: No Hx Family Endocrine Disorder: Yes (Hyperthyroidism) Hx Family Neuromuscular Disorders: No Hx Family Neurologic Disorders: No Hx Family HEENT Disorders: No Hx Family Autoimmune Disorders: No Medications and Allergies Ascorbic Acid [Vitamin C] 500 mg PO BID 07/06/18 [History] Cyanocobalamin (Vitamin B-12) [B-12] 1,000 mg PO DAILY 07/06/18 [History] Iron Ps Complex/B12/Folic Acid [Poly-Iron 150 Forte Capsule] 150 mg PO BID 07/06 [History] Pyridoxine HCl [Vitamin B-6] 25 mg PO DAILY 07/06/18 [History] 3 Allergy/AdvReac Type Severity Reaction Status Date / Time No Known Allergies Allergy Verified 03/04/17 21:38 All Systems Review: The remainder of the systems were reviewed and are negative - Constitutional Constitutional: fatigue - Cardiovascular Cardiovascular: as per HPI, chest pain at rest - Respiratory Respiratory: cough, other (smokes greater than two packs a day for at least twenty years, admits to chronic non productive cough. ) Physical Examination Vital Signs, Last 4 Hours Resp BP 07/06/18 18:37 16 123/80 General: Conversant, Other (moderate distress with ongoing chest pain, chills. ) HEENT: Atraumatic, Normocephaly, Mucus Membranes Moist Neck: No JVD, Normal carotid pulses Cardiac: Reg Rate and Rhythm, Normal S1 and S2, Other (heart rate 112) Lungs: Other (breath sounds decreased, end expiratory wheezes. ) Neuro: Alert and responsive Abdomen: Soft Skin: No rashes noted on visualized skin Musculoskeletal: No Chest Wall Tenderness Extremities: No Clubbing, No Cyanosis, No Edema, Normal Pulses Results 07/06/18 17:26 07/06/18 17:26 - EKG Interpretation EKG results cardiology: personally reviewed (Sinus tach, new st seg elevation inferior leads consistent with acute inf STEMI)
--- NOTE | 2018-07-06 19:42 | Invasive Diagnostic Lab Proc ---
Name: Jessica Sauceda Date of Study: 07/06/2018 Date: 1980 Ht: 70.9in Medical Record#: [id number] Age: 37 Wt: 138.89lb Gender: Female BSA: 1.8 Order #: [id number] BMI: 19.44 Physicians Procedure Physician: Gopi Lerner DO Referring MD: Referring MD: Staff Name Position Time In Maynor Morales RN M,o 06:41 PM Maynor Morales RN Monitor 06:42 PM Kristin Mathew RT (R) Scrub 06:42 PM Maria Isabel Lopez RN Mid Level Game Designer 06:42 PM Indications Indication STEMI Procedures Performed Procedure PRQ CARD REVASC NE 1 VSL L HRT ARTERY/VENTRICLE ANGIO Pre-Procedure Checklist Informed consent is complete signed and on chart. H&P is on chart. ID band is on and ID verified with patient. Patient NPO for procedure The procedure was described for the patient and questions were answered. Blood Pressure: 110/77 ECG is on chart. Rhythm: Sinus Tachycardia Plan of Care Patient will tolerate the procedure without complications. Adequate level of comfort will be maintained. Hemodynamics will remain stable Patient will recover from procedure without complications. Respiratory function will be maintained. Cardiac rhythm will remain stable. Patient temperature will be maintained. Patient and/or family have verbalized understanding of the procedure. Patient Education Chief Complaint/Reason for Test: Cardiac Cath Developmental Category: Adult (18-64 years) Developmentally Appropriate for Age: Yes Learning Barriers: None Education Needs: Plan of Care Education Method: Verbal Information Taught: Cardiac Cath Educational Evaluation: Able to repeat information Intravenous Access Time IV Size Location DC'd Fluid/Drip Rate Units RN 18g 1 1/4" Patent On Arrival Lt Antecubital 0.9NaCl Maynor Morales RN 20g 1 1/4" Patent On Arrival Rt Antecubital Maynor Morales RN Allergies AUGMENTIN No Known Allergies Vital Signs Time BP (mmHg) HR (bpm) O2 Sat. RR (bpm) LOC 06:42 PM / % 5 = Fully awake and oriented or at pre-proc level 06:42 PM / % 4 = Oriented but drowsy 06:57 PM / % 4 = Oriented but drowsy 06:42 PM 110 / 77 124 100 % 06:47 PM 123 / 73 120 100 % 15 06:52 PM 121 / 78 115 100 % 15 06:57 PM 121 / 70 106 100 % 15 07:02 PM 124 / 76 107 100 % 27 07:07 PM 115 / 76 95 100 % 16 07:12 PM 96 / 78 105 100 % 18 Procedural Medications Time Medication Dose Units Method Given By 06:42 PM Oxygen 2 L/min nasal cannula Maria Isabel Lopez RN 06:48 PM Versed 2 mg Intravenous Maria Isabel Lopez RN 06:52 PM Lidocaine 2% 10 ml Subcutaneous Gopi Lerner DO ASA Classification: Emergent Procedure: ASA score is assumed Emeterio Score Preprocedure Postprocedure Activity 2- Moves 4 extremities sustained head lift Activity 2- Moves 4 extremities sustained head lift Circulation 2- SBP +/= 20 points of pre-anesthetic level Circulation 2- SBP +/= 20 points of pre-anesthetic level Consciousness 2- Awake and alert oriented x 3 Consciousness 2- Awake and alert oriented x 3 O2 Saturation 2- Able to maintain O2 satruation of 92% on room air O2 Saturation 2- Able to maintain O2 satruation of 92% on room air Respiratory 2- Able to deep breathe and cough well Respiratory 2- Able to deep breathe and cough well Total Score 10 Total Score 10 Contrast Agent: Isovue Diagnostic Contrast: 100 ml Total Contrast: 100 ml Fluoro Dose: 3115 mGy Activated Clotting Time Time Seconds to Clot 07:00 PM 356 Procedure Log Time Note Enter By 06:41 PM CathStat 06:41 PM Vitals capture started with the following parameters, Patient=Adult, Interval=5 min, Initial Lgxwxhpy=186 mmHg, Deflation Rate=5 mmHg, Cuff placed on Right Arm 06:41 PM Pt arrived to culture media laboratory assistant 2 at 18:41 [email or web address] 06:42 PM Maynor Morales RN Position: Monitor Time in: 18:42 [email or web address] 06:42 PM Kristin Mathew RT (R) Position: Scrub Time in: 18:42 [email or web address] 06:42 PM Maria Isabel Lopez RN Position: Mid Level Game Designer Time in: 18:42 [email or web address] 06:42 PM Patient charges- Angio tray pack, Navilyst 3mm J, Pulse Oximetry and ACIST tubing and transducer [email or web address] 06:42 PM HH=996 bpm, ZAWY=750/77 mmhg, JhB8=057.0 %, Comment=st 06:42 PM Hair removed from procedure site in emergency department using clippers. Bilateral groin prepped with Chloraprep by Kristin Mathew (R), then patient was draped. Skin intact. 3 06:42 PM Physician arrived 18:42 [email or web address] 06:42 PM Meet and greet completed [email or web address] 06:42 PM Sign in performed according to hospital policy. [email or web address] 06[facility] PM Procedure start 18:42 [email or web address] 06:42 PM Time: 18:42 Patient comfortable and pain free: Yes [email or web address] :42 PM Time: 18:42LOC: 5 = Fully awake and oriented or at pre-proc level [email or web address] 06:43 PM Time: 18:42 Oxygen on at 2 L/min per nasal cannula by Maria Isabel Lopez RN [email or web address] 06:47 PM AM=598 bpm, GOYR=170/73 mmhg, DdH1=712.0 %, Resp=15 B/min, Comment=st 06:48 PM Time: 18:48 Versed 2 mg Intravenous Given by Maria Isabel Lopez RN [email or web address] 06:52 PM Time out performed according to hospital policy [email or web address] 06:52 PM Time: 18:52 10 ml Lidocaine 2% to right groin Subcutaneous Given by Gopi Lerner DO [email or web address] 06:52 PM AL=459 bpm, ASPR=931/78 mmhg, LhF8=095.0 %, Resp=15 B/min, Comment=st 06:54 PM Micro-Introducer Kit utilized for sheath placement [email or web address] 06:55 PM Access obtained by percutaneous puncture. 6Fr 10cm Terumo Satsuma sheath placed in right Femoral artery. [id number] [email or web address] 06:55 PM 5Fr FL 4 catheter inserted over the wire [facility] [email or web address] 06:56 PM LCA angiography performed in multiple views. [email or web address] 06:56 PM Recorded Pressure: Ao, BB=711, Condition=Condition 1 (Aorta) Ao 100/60/80 06:57 PM UJ=480 bpm, XBUA=808/70 mmhg, XtQ6=849.0 %, Resp=15 B/min, Comment=st 06:57 PM Catheter removed [email or web address] 06:57 PM Time: 18:42LOC: 4 = Oriented but drowsy [email or web address] 06:58 PM 6Fr JR 4 Cordis guide catheter was used to cannulate the PCI vessel successfully. reused? No [email or web address] 06:58 PM Time: 18:43 Patient comfortable and pain free: Yes [email or web address] 06:58 PM Inflation device was opened. [email or web address] 06:59 PM Recorded Pressure: LV, VJ=388, Condition=Condition 1 (Left Ventricle) LV 113/0/5 06:59 PM Catheter selectively placed in left ventricle [email or web address] 06:59 PM Hand injected LV gram 10 ml contrast [email or web address] 06:59 PM Recorded Pressure: LV, Ao, HR=98, Condition=Condition 1 (Left Ventricle) LV 118/-2/3, (Aorta) Ao 104/62/84 06:59 PM repositioned to RCA [email or web address] 07:00 PM RCA angiography performed in multiple views. [email or web address] 07:00 PM At 19:00 the ACT was 356 seconds. [email or web address] 07:00 PM Coronary Dominance: right [email or web address] 07:02 PM PO=328 bpm, IGZZ=556/76 mmhg, MsY5=745.0 %, Resp=27 B/min, Comment=st 07:03 PM PCI Status Emergency [email or web address] 07:03 PM PCI lesion in Mid RCA. Pre Stenosis: 70 Pre STUART Flow: 3: Complete and Brisk Flow/Perfusion [email or web address] 07:04 PM .014 ChoICE PT Extra Support 300cm guide wire across target lesion- successful. reused? No [email or web address] 07:04 PM 3.5mm x 24mm Synergy drug-eluting stent across target lesion- successful Lot #[id number] [email or web address] 07:05 PM Stent deployed @ 16 josefa for 23 seconds [email or web address] 07:06 PM Stent delivery system removed intact. [email or web address] 07:07 PM HR=95 bpm, ROWG=101/76 mmhg, AvG1=157.0 %, Resp=16 B/min, Comment=nsr 07:11 PM right groin shot obtained. [email or web address] 07:11 PM Guide catheter removed intact. [email or web address] 07:11 PM Guide wire removed intact. [email or web address] 07:12 PM KG=749 bpm, NIBP=96/78 mmhg, NmE3=776.0 %, Resp=18 B/min, Comment=nsr 07:12 PM Pt still rating chest pain at a 7/10 [email or web address] 07:12 PM Procedure completed at 19:12 07/06/2018 [email or web address] 07:12 PM Did you address STUART flow and Dominance? Yes [email or web address] 07:13 PM Sign out completed: Radiation Dose 248.78 mGy, 3114.79 cGy/cm2 Fluoro Time: 4.0 Isovue 370 - 200ml contrast 100 ml given by Gopi Lerner DO. Complications: NoneCardiac Rehab Consult needed: YesConfirmed administered medications: Yes [email or web address] 07:13 PM Time: 18:57LOC: 4 = Oriented but drowsy [email or web address] 07:13 PM Isovue 370 - 200ml,1 Bottle(s) used. [email or web address] 07:13 PM Time: 18:58 Patient comfortable and pain free: No [email or web address] 07:13 PM Sheath left in place to be pulled on floor/holding areaV+Pad [email or web address] 07:13 PM Estimated Blood Loss: less than 20cc [email or web address] 07:13 PM Post ECG NSR [email or web address] 07:14 PM Post Blood Pressure 96/78 [email or web address] 07:14 PM 19:14 Post Pulses Bilateral DP & PT 2+ [email or web address] 07:14 PM Information taught Cardiac Cath and PCI [email or web address] 07:14 PM Education needs Procedure, Plan of Care, and Responsibilities of Patient in Care [email or web address] 07:15 PM Learning barriers :None [email or web address] 07:15 PM Education Methods Verbal [email or web address] 07:15 PM Site status No bleeding/hematoma - Rt Groin as reported by Kristin Mathew RT (R) at 19:15 [email or web address] 07:15 PM Opsite applied [email or web address] 07:21 PM Report given to CORN POPPER Pt taken to ICU Room #6. 19:21 [email or web address] 07:21 PM Plavix, Effient or Brilinta given Yes [email or web address] 07:23 PM Patient out of room: 19:23 [email or web address] 07:23 PM Family placed in consult room. [email or web address] 07:23 PM Complications: None [email or web address] Complications Complication None None Hemodynamics Pressures Site Systolic/A Wave Diastolic/V Wave Mean AO 100 60 80 LV 113 0 5 LV 118 -2 3 AO 104 62 84 Post Procedure Information Blood Pressure: 96/78 mmHg Rhythm: NSR Post procedural instructions were given Site Checks Time Location Status Staff Sheath In? Note 07:15 PM Rt Groin No bleeding/hematoma Kristin Mathew RT (R) Pulses Time Site Pre-Procedure Post-Procedure Note 7:14:00 PM Bilateral DP & PT 2+ 2+ Updated by RT Sushma(R) on 07/06/2018 7:35:00 PM electronically signed on 07/06/2018 7:35:37 PM with status of Final
[2018-07-06] MEDS ORDERED: Nicotine 21 MG PATCH.TD24 TD SCH (21:00)
[2018-07-06] MEDS: *HR* Ticagrelor 90 MG TABLET PO SCH (21:00)
[2018-07-06] MEDS: 0.9 % Sodium Chloride 1,000 ML IVC SCH (21:01)
[2018-07-06 23:10] LABS: Bilirubin,Urine Negative (Negative); Blood,Urine Negative (Negative); Clarity,Urine Clear (Clear); Color,Urine Yellow (Yellow); Glucose,Urine (UA) Normal (Normal); Ketones,Urine Negative (Negative); Leukocyte Esterase,Urine Negative (Negative); Nitrite,Urine Negative (Negative); Protein,Urine Trace mg/dL (Neg-Trace); Specific Gravity,Urine > 1.030 (1.010-1.025); Urobilinogen,Urine Normal (Normal)
[2018-07-06 23:12] LABS: Bacteria,Urine None Seen per hpf (None-Few); Hyaline Casts,Urine Few per lpf (None-Few); RBC,Urine 0-3 per hpf (0-3); Squamous Epithelial Cell,Urine Many per lpf (None-Few); WBC,Urine 0-3 per hpf (0-3)
[2018-07-07 04:03] LABS: Basophils % 0.1 %; Eosinophils # 0.3 K/mcL (0.0-0.6); Eosinophils % 1.4 %; Hematocrit 39.2 % (35.3-44.9); Immature Granulocytes % 0.5 % (0-4); Lymphocytes # 1.1 K/mcL (0.6-4.6); Lymphocytes % 5.3 %; Mean Corpuscular HGB Conc 32.9 g/dL (31.6-35.5); Mean Corpuscular Hemoglobin 29.9 pg (28.0-33.3); Mean Corpuscular Volume 90.7 fL (83.0-100.0); Mean Platelet Volume 10.2 fL (9.4-12.4); Monocytes # 0.4 K/mcL (0.0-1.3); Monocytes % 1.9 %; Neutrophils # 18.1 K/mcL (1.6-8.9); Platelet Count 253 K/mcL (140-400); Red Blood Count 4.32 M/mcL (3.82-4.97); Red Cell Distribution Width 12.6 % (11.5-14.5); Segmented Neutrophils % 90.8 %
[2018-07-07 04:05] LABS: Hemoglobin 12.9 g/dL (11.5-15.4)
[2018-07-07 04:13] LABS: BUN/Creatinine Ratio 16 (6-26); Blood Urea Nitrogen 11 mg/dL (6-20); Calcium 8.2 mg/dL (8.6-10.3); Carbon Dioxide 22 mEq/L (23-29); Chloride 112 mEq/L (98-107); Glucose 110 mg/dL (70-105); Osmolality,Calculated 282 (280-300); Potassium 4.1 mEq/L (3.5-5.1); Sodium 136 mEq/L (136-145); eGFR For Non-African Americans > 60 (> 60)
--- NOTE | 2018-07-07 08:03 | Pulmonology Consult Note ---
<Cande Berg - Last Filed: 07/07/18 10:28> Date of Encounter: 07/07/18 Time of Encounter: 07:26 Assessment and Plan (1) Supraventricular tachycardia Current Visit: Yes Status: Acute Pt's vitals are currently within normal limits, but she remains on cardiac monitoring. Previously, SVT was in the setting of low Hg. Her Hg is appropriate during this admission, we will continue to monitor. (2) Neck pain on right side Current Visit: Yes Status: Acute Pt is complaining of right-sided neck pain, muscular pain in her neck on the right side, and residual right arm pain. She had an unwitnessed fall yesterday with LOC. She has no decreased strength or point tenderness in her neck. Unknown down time after fall. - CPK level - Cervical spine CT (3) Current smoker Current Visit: No Status: Acute 40 pack year smoking history. Nicotine patch. Symbicort 80/4.5 2puffs BID Proair inhaler Q4 2 puffs PRN for wheezing Smoking cessation counseling. Follow up outpatient pulm clinic for PFTs. (4) STEMI (ST elevation myocardial infarction) Current Visit: Yes Status: Acute Pt went to dairy and food laboratory assistant yesterday and was found to have 70% occlusion of RCA, LINDA was placed through right femoral approach. Examine risk factors - Lipid panel, A1c, iron studies Parts Salvager on smoking cessation Continue telemetry and monitoring. Qualifiers: Involved coronary artery: right coronary artery Qualified Code(s): I21.11 - ST elevation (STEMI) myocardial infarction involving right coronary artery (5) Syncope and collapse Current Visit: Yes Status: Acute Pt reports no prodrome preceding the syncope, woke up in her living room on the floor, crawled to her kitchen to get her phone, returned to the living room and laid down on the floor as she still felt dizzy. Likely related to ACS. Continue to monitor. (6) DVT prophylaxis Current Visit: No Status: Acute Heparin History of Present Illness Consult date: 07/07/18 Requesting physician: Gopi Lerner Reason for consult: other (critical care management) Chief complaint: chest pain History of present illness: Pt is a 37 F with a PmHx of iron deficiency anemia and SVT that presented yesterday to [facility] ED for syncope and weakness. Twenty minutes after initial EKG , she complained of 9/10 substernal crushing chest pain and repeat EKG revealed ST elevation in the inferior lateral leads with reciprocal changes in the anterior leads. A STEMI alert was called and the patient was taken to the dairy and food laboratory assistant, where her RCA was found to be 70% occluded and a LINDA was placed. Pt admitted to the ICU after procedure for critical care management post-stent. Pt endorses feeling "sore" all over, with specific pain in her head, right shoulder and right arm, along with some right arm swelling. She denies chest pain, shortness of breath, Past Med Surg Social Fam HX - Past Medical History Medical history: no medical history, other (Vitamin D deficiency. ) Additional medical history: Chronic microcytic anemia Psychiatric history: anxiety - Past Surgical History Surgical History: non-contributory - Social History Smoking Status: Heavy tobacco smoker (greater than two packs a day for over twenty years.) Packs per day: 1.5 Smokeless Tobacco Status: No Alcohol use: occasionally Drug use: none - Family History Mother Living Status: Still Living Hx Family Cardiac Disorders: No Hx Family Respiratory Disorders: No Hx Family Cancer: No Hx Family GI Disorders: No Hx Family Endocrine Disorder: Yes (Hyperthyroidism) Hx Family Neuromuscular Disorders: No Hx Family Neurologic Disorders: No Hx Family HEENT Disorders: No Hx Family Autoimmune Disorders: No Medications and Allergies Ascorbic Acid [Vitamin C] 500 mg PO BID 07/06/18 [History] Cyanocobalamin (Vitamin B-12) [B-12] 1,000 mg PO DAILY 07/06/18 [History] Iron Ps Complex/B12/Folic Acid [Poly-Iron 150 Forte Capsule] 150 mg PO BID 07/06 [History] Pyridoxine HCl [Vitamin B-6] 25 mg PO DAILY 07/06/18 [History] 3 Allergy/AdvReac Type Severity Reaction Status Date / Time No Known Allergies Allergy Verified 03/04/17 21:38 All Systems: The remainder of the systems were reviewed and are negative - Constitutional Constitutional: no chills, no fever(s), no frequent falls - EENT Eyes: no loss of peripheral vision, no loss of vision Ears: no decreased hearing, no tinnitus Nose, mouth and throat: dizziness, headache(s) - Cardiovascular Cardiovascular: chest pain, irregular heart rhythm, palpitations - Respiratory Respiratory: cough, no dyspnea - Gastrointestinal Gastrointestinal: no abdominal pain, no diarrhea, no nausea, no vomiting - Musculoskeletal Musculoskeletal: myalgias, neck pain - Integumentary Integumentary: no erythema, no rash, no jaundice - Neurological Neurological: dizziness, headache(s) Physical Examination Vital Signs: Vital Signs, Last 4 Hours Temp Pulse Resp BP Pulse Ox 07/07/18 06:00 95 20 110/62 94 07/07/18 05:00 100 12 104/62 95 07/07/18 04:34 97.8 F General appearance: no acute distress Eyes: nonicteric ENT: oropharynx moist Effort: normal Auscultation: bilateral: clear Cardiovascular: regular rate and rhythm Gastrointestinal: normoactive bowel sounds, soft, non-tender, non-distended Integumentary: normal Extremities: no cyanosis normal mental status mood appropriate, affect normal Results - Laboratory Findings CBC and BMP: 07/07/18 03:39 07/07/18 03:39 Abnormal lab findings: Abnormal lab results WBC 19.9 K/mcL (4.3-11.1) H 07/07/18 03:39 Neutrophils # 18.1 K/mcL (1.6-8.9) H 07/07/18 03:39 Chloride 112 mEq/L (98-107) H 07/07/18 03:39 Carbon Dioxide 22 mEq/L (23-29) L 07/07/18 03:39 Glucose 110 mg/dL (70-105) H 07/07/18 03:39 Calcium 8.2 mg/dL (8.6-10.3) L 07/07/18 03:39 Ur Specific [place] > 1.030 (1.010-1.025) H 07/06/18 22:30 Ur Squamous Epith Cells Many per lpf (None-Few) H 07/06/18 22:30 - Diagnostic Findings Chest x-ray: report reviewed, image reviewed Consult Discharge Plan - Plan Referrals: NONE,PCP [Primary Care Provider] - <Tristan Goldman W - Last Filed: 07/07/18 12:53> Date of Encounter: 07/07/18 All Systems: The remainder of the systems were reviewed and are negative Physical Examination Vital Signs: Vital Signs, Last 4 Hours Temp Pulse Resp BP Pulse Ox 07/07/18 07:00 97.2 F L 07/07/18 06:00 95 20 110/62 94 07/07/18 05:00 100 12 104/62 95 Results - Laboratory Findings CBC and BMP: 07/07/18 03:39 07/07/18 03:39 Abnormal lab findings: Abnormal lab results WBC 19.9 K/mcL (4.3-11.1) H 07/07/18 03:39 Neutrophils # 18.1 K/mcL (1.6-8.9) H 07/07/18 03:39 Chloride 112 mEq/L (98-107) H 07/07/18 03:39 Carbon Dioxide 22 mEq/L (23-29) L 07/07/18 03:39 Glucose 110 mg/dL (70-105) H 07/07/18 03:39 Calcium 8.2 mg/dL (8.6-10.3) L 07/07/18 03:39 Ur Specific [place] > 1.030 (1.010-1.025) H 07/06/18 22:30 Ur Squamous Epith Cells Many per lpf (None-Few) H 07/06/18 22:30 - Clinical Findings Intake & Output: Intake & Output 07/06/18 07/07/18 07/07/18 23:59 07:59 15:59 Output Total 600 / 600 Balance -600 / -600 - Attending Attestation I examined this patient and my medical decision-making was reviewed with the Resident Physician. I agree with the documented findings, disposition and treatment plan as described except to the extent set forth below. We independently had [id number] contact with the patient Patient seen and examined at bedside Labs, radiology, chart personally reviewed. Management was reviewed during multidisciplinary critical care rounds. EXAM: Resp. Bilateral expiratory wheezing Neuro: Right arm appears puffy compared to the left there is distal pulses 2+ palpable and bilaterally in the radial region. The arm is slightly swollen but not taut and there is intact to touch with 5 out of 5 strength bilaterally in the upper extremities. There is a slight decrease in strength in the left lower extremity related to recent catheterization sensation grossly intact strength is fully preserved in the left lower extremity. Assessment 1. STEMI 2. Syncope 3. COPD 4. Tobacco Abuse 5. MSK Pain. Recs: 1. Cardiology managing. 2. No focal neurological deficits at this time 3. Start ICS/L SILVINO with RUSTY, outpatient pulmonary follow-up for PFTs 4. Tobacco cessation counseling given 5. Concern for possibility of trauma related to syncope no neck pain along the spinal column and patient has near full range of motion in her neck we will check CPK. Plan for CT NECK and based upon clinical course and we will consider ortho consultation. Start heat pack and cont IV analgesia. No further recommendations from pulmonary standpoint and this service will sign off please feel free to discuss with inpatient hospitalist service if further general medical questions arise.
[2018-07-07] MEDS: *HR* Ticagrelor 90 MG TABLET PO SCH ×2 (08:48→20:24)
[2018-07-07] MEDS: 0.9 % Sodium Chloride 1,000 ML IVC SCH ×2 (09:00→20:27)
[2018-07-07] MEDS ORDERED: Aspirin 81 MG TAB.CHEW PO SCH (09:00)
[2018-07-07] MEDS ORDERED: Ondansetron 4 MG/2 ML VIAL IVP ONE (09:18)
--- NOTE | 2018-07-07 09:54 | Cardiology Progress Note ---
Date of Encounter: 07/07/18 Time of Encounter: 09:50 Assessment and Plan (1) STEMI (ST elevation myocardial infarction) Current Visit: Yes Status: Acute The assessment and plan as outlined above was discussed with the patient and/or family members who expressed understanding and agreement. All questions were answered. Acute inferior NE. S/p PCI to RCA. TTE pending. There was no complication from the procedure. Importance of DAPT with asa and brilinta uninterrupted for minimum of one year discussed and she voiced understanding. Continue statin and BB. Activity restrictions reviewed as stated above.Cardiac rehab ordered. Step down today is CT of spine is normal. Noted elevated leukocytosis, may be reactive. Manager Forensic following. UA was negative. Qualifiers: Involved coronary artery: right coronary artery Qualified Code(s): I21.11 - ST elevation (STEMI) myocardial infarction involving right coronary artery (2) Supraventricular tachycardia Current Visit: Yes Status: Acute The assessment and plan as outlined above was discussed with the patient and/or family members who expressed understanding and agreement. All questions were answered. Suspect tachycardia due to metabolic demands with acute NE, anxiety, will continue to monitor. Telemetry review shows avg HR 99 bpm. HR 90-120 SR-ST. No SVT seen. (3) Current smoker Current Visit: No Status: Acute The assessment and plan as outlined above was discussed with the patient and/or family members who expressed understanding and agreement. All questions were answered. PT smokes greater than two packs a day, currently with nicotine patch. (4) Syncope and collapse Current Visit: Yes Status: Acute The assessment and plan as outlined above was discussed with the patient and/or family members who expressed understanding and agreement. All questions were answered. n Syncope and collapse with STEMI. Monitor telemetry to r/o arrhythmia. No pauses, bradycardia, VT or concerning arrhythmias seen on telemetry. (5) Shoulder pain, right Current Visit: Yes Status: Acute C/o right shoulder and neck pain after fall. Pain is reproducible. States pain did not improve after PCI. Likely muscle skeletal. Ct pending. Appreciate isobutylene operator chief recommendations. Qualifiers: Chronicity: acute Qualified Code(s): M25.511 - Pain in right shoulder Discussion w patient/family: The assessment and plan as outlined above was discussed with the patient and/or family members who expressed understanding and agreement. All questions were answered. Thank you for involving us in the care of your patient. Please call with any questions. Subjective Principal diagnosis: Inferior STEMI Interval history: Ms. Sauceda c/o right shoulder pain and neck pain. Reports fall with syncopal episode at home. Imaging pending on shoulder. Objective Vital Signs, Last 4 Hours Temp Pulse Resp BP Pulse Ox 07/07/18 07:00 97.2 F L 07/07/18 06:00 95 20 110/62 94 General: Conversant, Other (Grimacing) HEENT: Atraumatic, Normocephaly, Mucus Membranes Moist Neck: No JVD, Normal carotid pulses Cardiac: Reg Rate and Rhythm, Normal S1 and S2, No Murmur Lungs: Normal Breath Sounds, No Wheeze, Rales, Rhonchi Neuro: Alert and responsive, No focal deficits noted Abdomen: Soft, Non-Tender Skin: No rashes noted on visualized skin Musculoskeletal: No Chest Wall Tenderness, Other (Right shoulder and neck tender with palpation. ) Extremities: No Clubbing, No Cyanosis, No Edema, Normal Pulses Results 07/07/18 03:39 07/07/18 03:39 - Imaging and Cardiology Echo: pending Cardiac cath: report reviewed - EKG Interpretation EKG results cardiology: personally reviewed - VTE Reasons for not Prescribing Prophylaxis: Not indicated-Anticoagulated or INR therapeutic Consult Discharge Plan - Plan Referrals: NONE,PCP [Primary Care Provider] -
[2018-07-07] MEDS ORDERED: Budesonide/Formoterol 80/4.5 MDI IH SCH (10:00)
[2018-07-07] MEDS: *HR* OxyCODONE Immed Rel 5 MG TABLET PO PRN ×2 (10:17→17:14)
[2018-07-07 11:42] LABS: Estimated Average Glucose 105 mg/dl; Hemoglobin A1C 5.3 %
[2018-07-07 16:49] LABS: % Iron Saturation 9 % (15-50); Chol/HDL Ratio 4.3 (0-4.9); Cholesterol 107 mg/dL (< 200); Creatine Kinase 183 Units/L (30-223); HDL Cholesterol 25 mg/dL (40-59); Iron 22 mcg/dL (50-170); LDL Cholesterol,Calculated 71 mg/dL (0-99); Transferrin 168 mg/dL (203-362); Triglycerides 56 mg/dL (< 150)
[2018-07-07] MEDS ORDERED: *HR* OxyCODONE Immed Rel 5 MG TABLET PO PRN (18:26)
[2018-07-07] MEDS ORDERED: traMADol 50 MG TABLET PO ONE (20:00)
[2018-07-07] MEDS: Ascorbic Acid 500 MG TABLET PO SCH (20:25)
[2018-07-07] MEDS: B12 PO SCH (20:26)
[2018-07-07] MEDS: IRON PS COMPLEX PO SCH (20:26)
[2018-07-07] MEDS: FOLIC ACID PO SCH (20:26)
[2018-07-07] MEDS ORDERED: Nicotine 21 MG PATCH.TD24 TD SCH (21:00)
[2018-07-07] MEDS: Budesonide/Formoterol 80/4.5 MDI IH SCH (22:14)
[2018-07-08 04:33] LABS: BUN/Creatinine Ratio 13 (6-26); Blood Urea Nitrogen 9 mg/dL (6-20); Calcium 8.1 mg/dL (8.6-10.3); Carbon Dioxide 23 mEq/L (23-29); Chloride 112 mEq/L (98-107); Glucose 110 mg/dL (70-105); Osmolality,Calculated 287 (280-300); Potassium 3.6 mEq/L (3.5-5.1); Sodium 139 mEq/L (136-145); eGFR For Non-African Americans > 60 (> 60)
[2018-07-08 04:53] LABS: Eosinophils # 0.3 K/mcL (0.0-0.6); Eosinophils % 4.6 %; Immature Granulocytes % 0.3 % (0-4); Lymphocytes % 22.4 %; Mean Corpuscular HGB Conc 32.6 g/dL (31.6-35.5); Mean Corpuscular Hemoglobin 30.6 pg (28.0-33.3); Mean Corpuscular Volume 93.7 fL (83.0-100.0); Mean Platelet Volume 10.5 fL (9.4-12.4); Monocytes # 0.4 K/mcL (0.0-1.3); Monocytes % 5.4 %; Neutrophils # 4.6 K/mcL (1.6-8.9); Platelet Count 190 K/mcL (140-400); Red Blood Count 3.63 M/mcL (3.82-4.97); Red Cell Distribution Width 13.1 % (11.5-14.5); Segmented Neutrophils % 67.3 %
[2018-07-08 04:56] LABS: Hemoglobin 11.1 g/dL (11.5-15.4); Lymphocytes # 1.6 K/mcL (0.6-4.6)
[2018-07-08] MEDS: 0.9 % Sodium Chloride 1,000 ML IVC SCH (06:01)
[2018-07-08 08:08] VITALS: BP 123/82
[2018-07-08] MEDS ORDERED: Cyanocobalamin (B-12) 1,000 MCG TABLET PO SCH (09:00)
[2018-07-08] MEDS ORDERED: Aspirin 81 MG TAB.CHEW PO SCH (09:00)
[2018-07-08] MEDS ORDERED: Pyridoxine (B-6) 50 MG TABLET PO SCH (09:00)
--- NOTE | 2018-07-08 09:09 | Discharge Summary ---
Date of Encounter: 07/08/18 Time of Encounter: 09:04 - Discharge Diagnosis (1) STEMI (ST elevation myocardial infarction) Priority: Primary Status: Acute Qualifiers: Involved coronary artery: right coronary artery Qualified Code(s): I21.11 - ST elevation (STEMI) myocardial infarction involving right coronary artery (2) Current smoker Priority: Secondary Status: Acute (3) Syncope and collapse Priority: Primary Status: Acute (4) Shoulder pain, right Priority: Primary Status: Acute Qualifiers: Chronicity: acute Qualified Code(s): M25.511 - Pain in right shoulder - Hospital Course Hospital course: Ms. Sauceda is a 37 year old female smoker with no significant medical history presents after having syncopal event. Her initial work up with EMS revealed SVT. Unfortunately there was documentaion of this. Her initial EKG showed sinus tachycardia HR 117. HR noted to be 120's in ED. Repeat EKG completed for shoulder pain showed inferior ST elevation. She was taken urgently to the cardiac catheterization lab and received LINDA to her RCA. No significant disease otherwise. TTE showed preserved EF and no significant valvular disease. She developed right shoulder and neck pain after her syncopal event and she feels she may have fallen on her shoulder. CT spine was negative for acute fractures. She is using tylenol and ice packs for pain. Recommended to follow with PCP. Telemetry review shows NSR. No VT, no bradycardia, no pauses. Muscle-skeletal shoulder and neck pain improved,. She is now ready for d/c. There was no complication from the procedure. Denies recurrent chest pain. No complications from right femoral access site. Importance of DAPT with asa and brilinta uninterrupted for minimum of one year discussed and she voiced understanding. Continue statin and BB. Activity restrictions reviewed as stated above.Cardiac rehab ordered. Out-pt f/u will be coordinated by [facility]. Time spent discussing smoking cessation with patient: more than 10 minutes (1hr , d/c summary. d/c teaching, med rec.) - Time Spent with Patient Total time spent providing and/or coordinating discharge services: Greater than 30 minutes - Discharge Medications Prescriptions: Aspirin 81 mg PO DAILY #30 tab.chew Carvedilol [Coreg] 3.125 mg PO BIDWM #60 tablet Nicotine Patch [Nicoderm] 21 mg TD HS #14 patch.td24 Rosuvastatin [Crestor] 20 mg PO HS #30 tablet Ticagrelor [Brilinta] 90 mg PO BID #60 tablet Home Medications: Ascorbic Acid [Vitamin C] 500 mg PO BID 07/06/18 [History] Cyanocobalamin (Vitamin B-12) [B-12] 1,000 mg PO DAILY 07/06/18 [History] Iron Ps Complex/B12/Folic Acid [Poly-Iron 150 Forte Capsule] 150 mg PO BID 07/06 [History] Pyridoxine HCl [Vitamin B-6] 25 mg PO DAILY 07/06/18 [History] Acetaminophen [Tylenol] 500 mg PO Q6HR PRN tablet 07/08/18 [Rx] Aspirin 81 mg PO DAILY #30 tab.chew 07/08/18 [Rx] Carvedilol [Coreg] 3.125 mg PO BIDWM #60 tablet 07/08/18 [Rx] Nicotine Patch [Nicoderm] 21 mg TD HS #14 patch.td24 07/08/18 [Rx] Rosuvastatin [Crestor] 20 mg PO HS #30 tablet 07/08/18 [Rx] Ticagrelor [Brilinta] 90 mg PO BID #60 tablet 07/08/18 [Rx] Allergies/Adverse Reactions: 3 Allergy/AdvReac Type Severity Reaction Status Date / Time No Known Allergies Allergy Verified 03/04/17 21:38 Date of admission: 07/07/18 04:00 Primary care physician: PCP NONE 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 Discharging clinician: Fer Mari Physical Examination Vital Signs, Last 4 Hours Temp Pulse Resp BP Pulse Ox 07/08/18 08:05 97.9 F 77 16 123/82 97 07/08/18 05:08 98.1 F 79 16 115/85 94 General: Conversant, No Apparent Distress HEENT: Atraumatic, Normocephaly, Mucus Membranes Moist Neck: No JVD, Normal carotid pulses Cardiac: Reg Rate and Rhythm, Normal S1 and S2, No Murmur Lungs: Normal Breath Sounds, No Wheeze, Rales, Rhonchi Neuro: Alert and responsive, No focal deficits noted Abdomen: Soft, Non-Tender Skin: No rashes noted on visualized skin Musculoskeletal: No Chest Wall Tenderness Extremities: No Clubbing, No Cyanosis, No Edema, Normal Pulses - Patient Status Disposition: Home, Self-Care Condition: Fair Functional capacity at discharge: independent ambulation Overall status at discharge: patient is progressing back to baseline - Discharge Instructions Follow Up With: NONE,PCP [Primary Care Provider] - Additional Instructions: RISK FACTORS: STOP SMOKING: If you smoke, STOP. Smoking or tobacco use significantly increases your risk of heart disease because nicotine causes the arteries to narrow or constrict. It also causes fats to stick to the artery. Your chances of having a heart attack are greatly increased if you continue to smoke. For more information, call the education line for smoking cessation 3-302-APLWVXT EAT A LOW FAT/CHOLESTEROL/SODIUM DIET: This diet may help reduce your chances of having a heart attack. LIFTING: Avoid lifting anything more than 10 pounds for 5-7 days Prior to straining, laughing, sneezing and/or coughing, apply manual pressure directly over insertion site. ACTIVITY: You may walk or climb stairs as tolerated You can resume sexual activity as tolerated In general, you are encouraged to engage in a minimum of 30 minutes or more of moderate intensity physical activity, such as brisk walking, daily or at least 3 -4 times weekly BATHING Do not submerge the site into water (bath tub, hot tub, swimming pool) for 1 week. This can be a source for infection into the blood stream. You may shower after 24 hours SITE CARE: After 24 hours, you may remove the dressing and leave the site open to air. Keep the site clean and dry. Clean gently and pat dry. You can expect bruising and tenderness that gradually resolve within a week or two. Return to work as instructed per your physician Resume driving as instructed per physician Keep all scheduled follow up appointments Resume medications as instructed IMPORTANT: If prescribed a Platelet Aggregation Inhibitor such as, Plavix, Brilinta or Effient: Duration of therapy is minimum one year These medications are often used in combination with Aspirin in prevention of future heart attacks Never discontinue unless consult with your Reclamation Engineer STROKE (CVA) Risk factors for a stroke are: Age, cigarette smoking, diabetes, excessive alcohol consumption, family history, high blood pressure, overweight, physical inactivity, prior stroke, heart attack, diagnosis of carotid artery stenosis or other artery disease. Warning signs: Sudden numbness or weakness of the face, arm or leg; especially on one side of the body, sudden confusion, trouble speaking or understanding, sudden trouble seeing in one or both eyes, sudden trouble walking, dizziness, loss of balance or coordination, sudden severe headache with no cause. Call 911 or go to the Emergency Room. CONGESTIVE HEART FAILURE: If you have been diagnosed with Congestive Heart Failure (CHF) and your symptoms return, make an appointment with your physician Weigh yourself daily. Notify your physician if you have a weight gain of two or more pounds in one day or five or more pounds in one week. If you experience any difficulty breathing, please call 911 BLEEDING: Although the risk of bleeding is minimal, it can happen. If you have any bleeding from the site, apply firm pressure above the puncture site for 10-15 minutes. If the bleeding does not stop, continue manual pressure and call 911 Contact your physician if: You develop a fever greater than 101 degrees Fahrenheit Your site becomes reddened or has any drainage You have an increase in pain or burning at the site or if a large knot forms at the site. If you experience chest pain, shortness of breath, dizziness, or extreme tiredness, stop the activity and rest. Please notify your physicians office if you experience any of these symptoms and they are not relieved by rest please call 911! - Diet and Activity Activity: increase activity as tolerated - VTE Reasons for not Prescribing Prophylaxis: Not indicated-Anticoagulated or INR therapeutic
[2018-07-08] MEDS: IRON PS COMPLEX PO SCH (09:23)
[2018-07-08] MEDS: B12 PO SCH (09:23)
[2018-07-08] MEDS: *HR* Ticagrelor 90 MG TABLET PO SCH (09:23)
[2018-07-08] MEDS: FOLIC ACID PO SCH (09:23)
[2018-07-08] MEDS: Ascorbic Acid 500 MG TABLET PO SCH (09:24)
[2018-07-08] MEDS ORDERED: traMADol 50 MG TABLET PO ONE (09:44)
[2018-07-08] MEDS: Budesonide/Formoterol 80/4.5 MDI IH SCH (10:57)
--- NOTE | 2018-07-08 15:43 | Electrocardiograph Report ---
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
--- NOTE | 2018-07-08 15:45 | Electrocardiograph Report ---
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
--- NOTE | 2018-07-08 15:57 | Electrocardiograph Report ---
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
--- NOTE | 2018-07-10 17:10 | Electrocardiograph Report ---
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
== END 2018-07-08 11:59 | disposition home or self-care (01) | DRG 247 ==
LOC: EMEROOARM 17:18 → ICNU 17:18 → 2NENU 07-07 18:27
PROVIDERS: ADMIT Internal Medicine; ATTEND Internal Medicine